=== PATIENT | female | born 2000 | race Asian ===

== ENCOUNTER 2023-02-09 14:25 | Emergency (ER) | payer BC, SELFPAY ==
[2023-02-09 14:38] VITALS: BP 127/82; PULSE 96; RESP 16; TEMP 37.1; O2SAT 100
--- NOTE | 2023-02-09 14:39 | ED.ABDPAIN ---
HPI - Abdominal Pain General Chief Complaint: Abdominal Pain Stated Complaint: VOMITING/ABD PAIN/CHEST PAIN Source: patient and RN notes reviewed Mode of arrival: ambulatory Limitations: no limitations History of Present Illness HPI narrative: 22-year-old female presented for complaint of abdominal cramping, nausea vomiting, and diarrhea. Onset this morning. Abdominal cramping is around the navel, and ranges from 2/10-10/10 pain. Reports about 4 episodes of vomiting, denies hematemesis. Has not eaten anything today. Last meal was pizza at 8pm last night. Denies anyone with similar symptoms. Has not taken anything for symptoms. Denies cough, sob, wheezing, urinary complaints, flank pain, or fever. LMP 10 days ago. Denies abdominal surgery. Related Data Home Medications Medication Instructions Recorded Confirmed No Home Medications 02/09/23 02/09/23 Allergies Allergy/AdvReac Type Severity Reaction Status Date / Time No Known Allergies Allergy Verified 02/09/23 14:34 Review of Systems Review of Systems: CONSTITUTIONAL: Denies body aches, fever, chills ENT: Denies rhinorrhea, congestion CARDIOVASCULAR: Denies chest pain, palpitations, or edema. RESPIRATORY: Denies cough or dyspnea. GASTROINTESTINAL: Endorses abdominal pain, nausea, vomiting, diarrhea. Denies hematochezia, melena, hematemesis GENITOURINARY: Denies dysuria, hematuria, or CVA tenderness. SKIN: Denies rash, itching, or wounds. MUSCULOSKELETAL: Denies back pain, joint pain, or myalgia. NEUROLOGIC: Denies headache, numbness, tingling, or weakness. All systems reviewed & are unremarkable except as noted in HPI and below [facility] Past Medical History Medical History (Updated 02/09/23 @ 15:06 by Bethany Basurto APRN) Anxiety Eczema Social History Social History Smoking status: Never smoker Alcohol intake: never Comments At time of signature, I have reviewed and agree with nursing past medical, surgical, social and family history unless otherwise noted. Please see nursing chart for further information. There is no relevant family history pertinent to the presenting complaint Exam Narrative: GENERAL: mildly ill-appearing EYES: EOMI. Conjunctivae normal. ENT: Mucous membranes pink and moist. CHEST: No respiratory distress. Clear to auscultation. HEART: Regular rate and rhythm. No murmur appreciated. Normal peripheral pulses. ABDOMEN: abd soft, nondistended, normal active bowel sounds. Generalized tender abdomen, worse to RLQ and periumbilical. Guarding and crying noted. Pain improved, stating it comes in waves. No rebound tenderness, asymmetry, or rigidity. No pulsatile masses. Negative Ruiz?s sign. No Supra public tenderness or distension. EXTREMITIES: Normal range of motion. SKIN: Warm, dry, no rash. Capillary refill normal. Normal skin turgor. NEURO: No focal deficits. Alert and oriented x3. PSYCH: Normal affect. Course Course Emergency Course: Patient is aware of diagnosis, understands and agrees to treatment plan. Anticipatory guidance given. Patient agrees to follow-up as directed and is aware of reasons to seek care at the emergency department. Portions of this record may have been created with voice recognition software Level of Care: Express Care Visit Vital Signs Vital signs: Vital Signs Temperature 98.7 F 02/09/23 14:38 Pulse Rate 96 02/09/23 14:38 Respiratory Rate 16 02/09/23 14:38 Blood Pressure 127/82 02/09/23 14:38 Pulse Oximetry 100 02/09/23 14:38 Temperature 98.7 F 02/09/23 14:38 Pulse Rate 96 02/09/23 14:38 Respiratory Rate 16 02/09/23 14:38 Blood Pressure 127/82 02/09/23 14:38 Pulse Oximetry 100 02/09/23 14:38 Transfer Transfered to: [employer] Transportation: Other (Private vehicle) Transfer rationale: Pt is agreeable to transfer. Requests transfer to [facility] via private vehicle. Risks
[2023-02-09] MEDS: ONDANSETRON HCL ODT 4 MG TABLET SUBLINGUAL (14:53)
== END 2023-02-09 14:56 | disposition short-term general hospital (02) ==
PROVIDERS: Emergency Provider Nurse Practitioner Family; PCP Internal Medicine
DX: R10.31 Right lower quadrant pain (principal); R10.33 Periumbilical pain
CPT/HCPCS: 99213; A9270; G0463

== ENCOUNTER 2023-02-09 15:15 | Emergency (ER) | payer BC, SELFPAY ==
--- NOTE | ~2023-02-09 | CT_ITS ---
EXAMINATION: CT abdomen pelvis w con INDICATION: Generalized abdominal pain TECHNIQUE: Computed tomographic images of the abdomen and pelvis were obtained after the administrati on of 100 cc of Omnipaque 350 intravenous contrast. The dose-length product (DLP) was 718.47 mGy-cm. Automated exposure control and iterative reconstruction technique were employed. COMPARISON: None available FINDINGS: Minimal dependent atelectasis is present in the lung bases. The heart size is normal. The l iver, spleen, pancreas, gallbladder, and adrenal glands are normal. The kidneys are unremarkable. No pathologically enlarged abdominal or pelvic lymph nodes are identified. No free intraperitoneal gas o r evidence of bowel obstruction. There is a small amount of fluid in the right adnexa, likely physiol ogic. The appendix is normal. There is circumferential wall thickening involving segments of the term inal ileum. IMPRESSION: 1. Circumferential wall thickening involving segments of the terminal ileum which could reflect ileit is or inflammatory bowel disease such as Crohn disease. Reviewed, dictated and finalized at location B. [employer]PH[employer]ER IMPRESSION: 1. Circumferential wall thickening involving segments of the terminal ileum whi ch could reflect ileitis or inflammatory bowel disease such as Crohn disease.
[2023-02-09 15:17] VITALS: BP 146/84; PULSE 100; RESP 19; TEMP 36.4; O2SAT 100
[2023-02-09 15:42] LABS: Basophils Percent Auto 0.2 % (0.2-1.2); Eosinophils Percent Auto 0.2 % (0-4.4); Hematocrit 47.8 % (37.0-47.0); Hemoglobin 15.6 g/dL (12.0-15.0); Immature Granulocyte Absolute 0.05 K/mm3 (0.00-0.031); Immature Granulocyte Percent A 0.4 % (0-0.5); Lymphocytes Absolute Auto 0.57 K/mm3 (0.9-3.2); Lymphocytes Percent Auto 4.9 % (18.3-44.2); Mean Corpuscular HGB Conc 32.6 g/dl (32-36); Mean Corpuscular Hemoglobin 28.6 pg (26-34); Mean Corpuscular Volume 87.7 fl (80-100); Mean Platelet Volume 9.4 fl (7.4-10.4); Monocytes Absolute Auto 0.4 K/mm3 (0.1-0.6); Monocytes Percent Auto 3.3 % (2.6-8.5); Neutrophils Absolute Auto 10.6 K/mm3 (1.3-6.7); Platelet Count Result 361 k/mm3 (150-375); Red Blood Count 5.45 M/mm3 (4.2-5.4); Red Cell Distribution Width 12.6 % (11.5-14.5); White Blood Count 11.7 K/mm3 (4.5-10.0)
[2023-02-09 15:51] LABS: Alanine Aminotransferase 81 U/L (6-35); Alkaline Phosphatase 83 U/L (38-126); Anion Gap 15 mmol/L (8-16); Aspartate Amino Transferase 45 U/L (14-36); Bilirubin,Total 0.9 mg/dL (0.2-1.3); Blood Urea Nitrogen 13 mg/dL (7-17); Calcium 10.1 mg/dL (8.4-10.2); Carbon Dioxide 24 mmol/L (22-30); Chloride 102 mmol/L (98-107); Estimated CRCL calculation 112 ml/min; Estimated Glomerular Filt Rate > 60; Glucose 109 mg/dL (65-110); Lipase 97 U/L (23-300); Potassium 3.7 mmol/L (3.4-5.0); Sodium 141 mmol/L (137-145)
[2023-02-09 16:05] LABS: Appearance Urine Cloudy (Clear); Bacteria Urine 1+ /hpf; Bilirubin Urine Negative (Negative); Blood Urine Negative (Negative); Color Urine Yellow (Yellow); Glucose Urine UA Negative (Negative); Ketones Urine 3+ mg/dL (Negative); Leukocyte Esterase Ur Trace LEU/UL (Negative); Need Manual Microscopic Reviewed; Nitrate Urine Negative (Negative); Non Pathogenic Casts 0-2; Protein Urine Trace mg/dL (Negative); Specific Grav Ur 1.031 (1.001-1.035); Squamous Epithelial Cell Urine Few /hpf (Few); pH Urine 7.5 (5.0-9.0)
[2023-02-09 16:10] LABS: Add Urine Microscopic? YES
--- NOTE | 2023-02-09 16:19 | ED.ABDPAIN ---
HPI - Abdominal Pain General Chief Complaint: Abdominal Pain <Shagufta Mendoza PA-C - Last Filed: 02/09/23 17:30> Stated Complaint: abd pain <Shagufta Mendoza PA-C - Last Filed: 02/09/23 17:30> Time Seen by Provider: 02/09/23 15:36 <Shagufta Mendoza PA-C - Last Filed: 02/09/23 17:30> History of Present Illness HPI narrative: 22-year-old female, LMP 1.5 weeks ago, reports for evaluation for generalized abdominal pain since 0700 this morning. Patient reports associated nausea, vomiting and watery diarrhea since she has developed symptoms. She denies aggravating or alleviating factors. She is never had pain like this before. She has not taken anything for pain. She denies dysuria, hematuria, urinary frequency or urgency, flank pain, fever, vaginal bleeding or discharge, concern for STDs, melena or hematochezia. Denies history of abdominal surgeries. <Shagufta Mendoza PA-C - Last Filed: 02/09/23 17:30> Related Data Allergies/Adverse Reactions: Allergies Allergy/AdvReac Type Severity Reaction Status Date / Time No Known Allergies Allergy Verified 02/09/23 14:34 <Shagufta Mendoza PA-C - Last Filed: 02/09/23 17:30> Review of Systems Review of Systems: CONSTITUTIONAL: Denies fever, chills EYES: Denies visual changes, redness, or discharge. ENT: Denies rhinorrhea, congestion, sore throat, or otalgia. CARDIOVASCULAR: Denies chest pain, palpitations, or edema. RESPIRATORY: Denies cough or dyspnea. GASTROINTESTINAL: See HPI GENITOURINARY: Denies dysuria or hematuria. SKIN: Denies rash or itching. MUSCULOSKELETAL: Denies back pain, joint pain, or myalgia. NEUROLOGIC: Denies headache, numbness, dizziness, or weakness. PSYCHIATRIC: Denies anxiety or depression. <Shagufta Mendoza PA-C - Last Filed: 02/09/23 17:30> PMFSH Past Medical History Medical History: Medical History Anxiety Eczema <Shagufta Mendoza PA-C - Last Filed: 02/09/23 17:30> Social History Social History: Social History Smoking status: Never smoker Alcohol intake: never <Shagufta Mendoza PA-C - Last Filed: 02/09/23 17:30> Exam Narrative: GENERAL: Well-appearing, in no acute distress. HEAD: Normocephalic EYES: PERRLA ENT: Nares clear. Mucous membranes moist. Oropharynx without tonsillar hypertrophy exudate or other lesions. NECK: Supple. CHEST: No respiratory distress. Clear to auscultation, no adventitious breath sounds. HEART: Regular rate and rhythm. No murmur heard. Normal peripheral pulses. ABDOMEN: Normal active bowel sounds. Abdomen soft with mild generalized tenderness. No guarding, rebound or rigidity. No CVA tenderness. No overlying skin changes. Negative Ruiz's. EXTREMITIES: Normal range of motion. No edema. SKIN: Warm, dry, no rash. NEURO: No focal deficits. Alert and oriented x3. PSYCH: Tearful <Shagufta Mendoza PA-C - Last Filed: 02/09/23 17:30> Course CENTER MANAGER/PA Physician Supervision I agree with midlevel documentation; I performed the medical decision making component of this evaluation. <Lolly Kirk MD - Last Filed: 02/09/23 18:22> Vital Signs Vital signs: Vital Signs Temperature 97.5 F L 02/09/23 15:17 Pulse Rate 100 02/09/23 15:17 Respiratory Rate 19 02/09/23 15:17 Blood Pressure 146/84 H 02/09/23 15:17 Pulse Oximetry 100 02/09/23 15:17 Oxygen Delivery Room Air 02/09/23 15:17 Temperature 97.5 F L 02/09/23 15:17 Pulse Rate 86 02/09/23 18:03 Respiratory Rate 14 02/09/23 18:03 Blood Pressure 128/79 02/09/23 18:03 Pulse Oximetry 100 02/09/23 18:03 Oxygen Delivery Room Air 02/09/23 15:17 <Shagufta Mendoza PA-C - Last Filed: 02/09/23 17:30> Vital Signs Temperature 97.5 F L 02/09/23 15:17 Pulse Rate 100 02/09/23 15:17 Respiratory Rate 19 02/09/23 15:17 Blood Pressure 14
[2023-02-09] MEDS: SODIUM CHLORIDE 0.9% IV 1,000 ML 999 ML IV CONT (16:29)
[2023-02-09] MEDS: ONDANSETRON INJ 4 MG/2 ML VIAL IV PUSH (16:30)
[2023-02-09] MEDS: MORPHINE SULFATE (*CRX) 4 MG/ML INJ IV PUSH (16:31)
[2023-02-09] MEDS: KETOROLAC 30 MG/ML VIAL (*BKC) IV PUSH (17:58)
[2023-02-09 18:03] VITALS: BP 128/79; PULSE 86; RESP 14; O2SAT 100
== END 2023-02-09 18:25 | disposition home or self-care (01) ==
PROVIDERS: Emergency Medicine; Emergency Provider Physician Assistant; PCP Internal Medicine
DX: K52.9 Noninfective gastroenteritis and colitis, unspecified (principal)
CPT/HCPCS: 36415; 74177; 80053; 81001; 81025; 83690; 85025; 87086; 87088; 96361; 96374; 96375; 99284; A9270; J1885; J2270; J2405; J7030; Q9967

== ENCOUNTER 2023-02-17 23:22 | Observation (INO) | payer BC, SELFPAY ==
--- NOTE | ~2023-02-17 | XR_ITS ---
EXAMINATION: XR UGIAC w small bowel DATE: 02/18/2023 11:59 INDICATION: Abdominal discomfort. TECHNIQUE: The patient drank thick barium, gas-producing crystals, and thin barium. Fluoroscopy of th e esophagus, stomach, and small bowel was performed. Fluoroscopy exposure time was 0.8 minutes. Radio graphs of the abdomen were obtained. The total number of images was 259. COMPARISON: CT abdomen and pelvis 02/09/2023 FINDINGS: UPPER GASTROINTESTINAL SERIES: There is no mass or stricture of the esophagus. Esophageal motility is normal. There is no hiatal her edis. The stomach shows a normal folding pattern. SMALL BOWEL SERIES: The small bowel shows a normal folding pattern. Specifically, the terminal ileum is normal. Transit t george to the colon was 15 minutes. IMPRESSION: 1. Normal upper gastrointestinal series. 2. Normal small bowel series. Reviewed, dictated and finalized at location A. ONHOLER
--- NOTE | ~2023-02-17 | US_ITS ---
EXAMINATION: US abdomen limited DATE: 02/18/2023 12:21 INDICATION: Nausea and vomiting. TECHNIQUE: Multiple grayscale and Doppler ultrasound images of the abdomen were obtained. COMPARISON: CT abdomen and pelvis 02/09/2023 FINDINGS: The visualized portions of the head and body of the pancreas are normal. The liver is orquidea l without focal lesion. There is normal flow in main portal vein. The gallbladder is normal in size a nd contains stones. No gallbladder wall thickening or sonographic Ruiz sign. The common duct is nor mal measures 3 mm. IMPRESSION: 1. Cholelithiasis. No evidence of acute cholecystitis. Reviewed, dictated and finalized at location A. CAL CHEMIST
[2023-02-17 23:39] VITALS: BP 150/100; PULSE 86; RESP 14; TEMP 36.8; O2SAT 100
[2023-02-18] VITALS (10 sets, daily range): BP systolic 109–149; BP diastolic 44–93; PULSE 58–90; RESP 16–17; TEMP 36.1–36.8; O2SAT 92–100; BMI 34.9
--- NOTE | 2023-02-18 01:38 | ED.NAVMDI ---
HPI - Nausea/Vomiting/Diarrhea General Chief complaint: Nausea/Vomiting/Diarrhea Stated complaint: N/V, abd pain Time Seen by Provider: 02/18/23 01:11 Source: patient Limitations: no limitations History of Present Illness HPI Narrative: Patient is a 22-year-old female presents to the emergency department accompanied by her mother for abdominal pain, nausea, vomiting. Patient states that she was here approximate 1.5 weeks ago for something similar when she was having nausea and vomiting and diarrhea and abdominal discomfort and had a CT scan done and was discharged with medications and has not followed up with anybody. Patient states at that time her abdominal discomfort within lower region was cramping and now it has changed over the past couple days it has been intermittent and in the epigastric and right upper quadrant region, described as an ache, nonradiating, denies any chest pain in the past, has an notice anything making her pain better or worse. Patient states that she went to [facility] on Sunday emergency department and again was evaluated for this without any diagnosis. Patient has never seen a sequins winder the patient has follow-up with the primary care physician on Sunday. Patient admits to emesis partially 1 episode daily and usually happens in the morning and is nonbloody and nonbilious. Patient denies any further diarrhea states rather she is more constipated now but has had a last bowel movement was today. Patient denies fever, use stool softeners, recent injuries, sick contacts, chest pain, shortness of breath, cough, history kidney stones, dysuria, urinary urgency, hematuria, melena, hematochezia. Patient is to chronic urinary frequency. Patient is to being able to tolerate some p.o. feels like she is not able to adequately nourished herself. Patient's her last menstrual period was 3 weeks ago. Patient has been taking famotidine, Zofran, dicyclomine without resolution of her symptoms. Related Data Allergies Allergy/AdvReac Type Severity Reaction Status Date / Time No Known Allergies Allergy Verified 02/18/23 01:09 Review of Systems Review of Systems: A 10 system review of systems was completed on the patient and is negative except for what is stated in the HPI. Nursing and ancillary documentation was reviewed. PMFSH Past Medical History Medical History Anxiety Eczema Social History Social History Smoking status: Never smoker Alcohol intake: never Comments At time of signature, I have reviewed and agree with nursing past medical, surgical, social and family history unless otherwise noted. Please see the nursing chart for further information. There is no relevant family history pertinent to the presenting complaint. Exam Narrative: CONST: No acute distress. Well nourished. HENMT: Head is normocephalic and atraumatic. Moist mucous membranes. No posterior oropharynx erythema. EYES: No conjunctival icterus, injection, or pallor. PERRL. NECK: No meningeal signs. RESP: Able to speak in full sentences. Normal respiratory effort. CTAB. CARDIO: Regular rate. Regular rhythm. 2+ DP and radial pulses bilaterally. GI: Nondistended. No tenderness to palpation. Soft. Negative Ruiz sign. No McBurney's point tenderness palpation. Negative psoas sign. Negative obturator's sign. No palpable masses or hernias. : No CVA tenderness to palpation. SKIN: No rashes or lesions noted on exposed skin. NEURO: Oriented x3. Moves all extremities. EXTREM/MSK/BACK: No pedal edema. PSYCH: Normal affect. Course Vital Signs Vital signs: Vital Signs Temperature 98.2 F 02/17/23 23:39 Pulse Rate 86 02/17/23 23:39 Respiratory Rate 14 02/17/23 23:39 Blood Pressure 150/100 H 02/17/23 23:39 Pulse Oximetry 100 02/17/23 23:39 Oxygen Delivery Room Air 02/17/23 23:39 Tem
[2023-02-18] MEDS: ACETAMINOPHEN 500 MG TABLET 1000 MG PO (01:51)
[2023-02-18] MEDS: METOCLOPRAMIDE HCL INJ 10 MG/2 ML VIAL IV PUSH (01:55)
[2023-02-18] MEDS: FAMOTIDINE 20 MG/2 ML VIAL IV PUSH (01:55)
[2023-02-18] MEDS: SODIUM CHLORIDE 0.9% IV 1,000 ML 999 ML IV CONT (01:56)
[2023-02-18 02:05] LABS: Basophils Absolute Auto 0.1 K/mm3 (0.0-0.1); Basophils Percent Auto 0.6 % (0.2-1.2); Eosinophils Absolute Auto 0.1 K/mm3 (0-0.3); Eosinophils Percent Auto 0.5 % (0-4.4); Hematocrit 46.5 % (37.0-47.0); Hemoglobin 15.2 g/dL (12.0-15.0); Immature Granulocyte Absolute 0.03 K/mm3 (0.00-0.031); Immature Granulocyte Percent A 0.3 % (0-0.5); Lymphocytes Absolute Auto 1.89 K/mm3 (0.9-3.2); Lymphocytes Percent Auto 16.7 % (18.3-44.2); Mean Corpuscular HGB Conc 32.7 g/dl (32-36); Mean Corpuscular Hemoglobin 28.5 pg (26-34); Mean Corpuscular Volume 87.2 fl (80-100); Monocytes Absolute Auto 0.7 K/mm3 (0.1-0.6); Monocytes Percent Auto 6.2 % (2.6-8.5); Neutrophils Absolute Auto 8.5 K/mm3 (1.3-6.7); Neutrophils Percent Auto 75.7 % (45.5-73.1); Platelet Count Result 393 k/mm3 (150-375); Red Blood Count 5.33 M/mm3 (4.2-5.4); Red Cell Distribution Width 12.7 % (11.5-14.5); White Blood Count 11.3 K/mm3 (4.5-10.0)
[2023-02-18 02:10] LABS: Appearance Urine Cloudy (Clear); Bacteria Urine 1+ /hpf; Bilirubin Urine Negative (Negative); Blood Urine Negative (Negative); Color Urine Yellow (Yellow); Glucose Urine UA Negative (Negative); Ketones Urine 4+ mg/dL (Negative); Leukocyte Esterase Ur Negative LEU/UL (Negative); Nitrate Urine Negative (Negative); Non Pathogenic Casts 0-2; Protein Urine Trace mg/dL (Negative); RBC Urine 0-2 /hpf (0-2); Specific Grav Ur 1.024 (1.001-1.035); Squamous Epithelial Cell Urine Few /hpf (Few); Urobilinogen Urine 0.2 mg/dL (<2.0); WBC Urine 0-5 /hpf; pH Urine 5.5 (5.0-9.0)
[2023-02-18 02:22] LABS: Lactic Acid Reflex 1.1 mmol/L (0.7-2.0)
[2023-02-18 02:24] LABS: Add Urine Microscopic? YES
[2023-02-18 02:32] LABS: Alanine Aminotransferase 57 U/L (6-35); Albumin Level 5.2 g/dL (3.5-5.1); Alkaline Phosphatase 75 U/L (38-126); Anion Gap 18 mmol/L (8-16); Aspartate Amino Transferase 45 U/L (14-36); Bilirubin,Total 1.2 mg/dL (0.2-1.3); Blood Urea Nitrogen 8 mg/dL (7-17); CRP < 0.5 mg/dL (<1.0); Calcium 10.5 mg/dL (8.4-10.2); Carbon Dioxide 21 mmol/L (22-30); Chloride 101 mmol/L (98-107); Estimated CRCL calculation 98 ml/min; Estimated Glomerular Filt Rate > 60; Glucose 61 mg/dL (65-110); Lipase 77 U/L (23-300); Magnesium 2.1 mg/dL (1.6-2.3); Potassium 3.9 mmol/L (3.4-5.0); Sodium 140 mmol/L (137-145)
[2023-02-18 02:41] LABS: Influenza A QL RT-PCR Negative (Negative); Influenza B QL RT-PCR Negative (Negative); SARS-CoV-2 RNA PCR Negative (Negative)
[2023-02-18] MEDS: DEXTROSE 5%/0.9% SOD CHL 1,000 ML 999 ML IV CONT (03:15)
--- NOTE | 2023-02-18 04:09 | ADMGEN ---
This patient, Paris Reaves, was admitted to Medical Room 261-01. Patient/family oriented to hospital policies and general routines including ID bracelet, bed and alarms, visiting hours, pain management, procedures, bathroom and other care routines, personal items, smoking policy, room service/diet, and visiting hours. Information on how to activate the Rapid Response Team has been discussed. Patient/Family are encouraged to report perceived risks to care and to ask questions if they do not understand what they are told or what they should do.
[2023-02-18] MEDS: SODIUM CHLORIDE 0.9% IV 1,000 ML 125 ML IV CONT (04:26)
--- NOTE | 2023-02-18 04:40 | PM.IMHP ---
H&P: HPI History of Present Illness Date/Time: 02/18/23 04:40 Chief Complaint: Abdominal pain Narrative: This is a 22-year-old female with known significant past medical history patient presents to the emergency room due to nausea vomiting poor oral intake poor appetite diarrhea, soft stools, denies, fevers, rigors or chills no hematemesis no coffee-ground emesis no bright red blood per rectum no melena no weight loss, no generalized malaise. Patient had been seen in the emergency room on February [address] of abdomen and pelvis showed local ileitis patient was sent home famotidine, Zofran, dicyclomine, naproxen. However patient states that she has not been able to get back to her usual and comes for evaluation. EXAMINATION: CT abdomen pelvis w con INDICATION: Generalized abdominal pain TECHNIQUE: Computed tomographic images of the abdomen and pelvis were obtained after the administration of 100 cc of Omnipaque 350 intravenous contrast. The dose-length product (DLP) was 718.47 mGy-cm. Automated exposure control and iterative reconstruction technique were employed. COMPARISON: None available FINDINGS: Minimal dependent atelectasis is present in the lung bases. The heart size is normal. The liver, spleen, pancreas, gallbladder, and adrenal glands are normal. The kidneys are unremarkable. No pathologically enlarged abdominal or pelvic lymph nodes are identified. No free intraperitoneal gas or evidence of bowel obstruction. There is a small amount of fluid in the right adnexa, likely physiologic. The appendix is normal. There is circumferential wall thickening involving segments of the terminal ileum. IMPRESSION: 1. Circumferential wall thickening involving segments of the terminal ileum which could reflect ileitis or inflammatory bowel disease such as Crohn disease. Review of Systems Review of Systems: Nausea, vomiting, poor per orally intake, diarrhea, soft stools. Constitutional: Constitutional: Denies chills, Denies fatigue, Denies fever(s), Denies malaise, Denies night sweats, Reports poor appetite and Reports weakness Eyes: Eyes: Denies change in vision ENT: Denies dysphagia, Denies vertigo, Denies dizziness and Denies odynophagia Cardiovascular: Cardiovascular: Denies chest pain, Denies radiating jaw, neck or arm pain and Denies palpitations Respiratory: Respiratory: Denies chest congestion and Denies dyspnea Gastrointestinal: Gastrointestinal: Reports abdominal pain, Denies melena, Denies hematochezia, Denies dyspepsia, Denies heartburn, Reports diarrhea, Reports nausea and Reports vomiting Genitourinary: Genitourinary: Denies dysuria Musculoskeletal: Musculoskeletal: Denies muscle weakness Integumentary/Breasts: Skin/Breast: Denies rash Neurologic: Denies focal weakness and Denies Sensory deficit (Neuro) Psychiatric: Psychiatric: Reports no additional psychiatric complaints and Reports as per HPI Endocrine: Endocrine: Denies cold intolerance, Denies fatigue, Denies flushing, Denies heat intolerance, Denies polyphagia, Denies polydipsia, Denies polyuria and Denies palpitations Hematologic/Lymphatic: Hematologic/Lymphatic: Reports no additional hematologic/lymphatic complaints and Reports as per HPI Allergic/Immunologic: Allergic/Immunologic: Reports no additional allergic/immunologic complaints and Reports as per HPI PMFSH Past Medical History Medical History Anxiety Eczema Family History Family History (Updated 02/18/23 @ 04:40 by Marlene Varma RN) Other Unknown family medical history Social History Social History Smoking status: Never smoker Alcohol intake: current Drinks per week: 3 Substance use: never Lack of Transportation: No Lack of Food: Never True Current Housing: I Have Housing Concerned About Future Housing: No Difficulty Paying Gas/[place]
[2023-02-18 05:49] LABS: Glucose Point of Care 178 mg/dl (65-105)
[2023-02-18] MEDS: DEXTROSE 5%/0.45% SOD CHL 1,000 ML 100 ML IV CONT ×2 (05:54→17:32)
--- NOTE | 2023-02-18 09:01 | PM.IMPN ---
Progress Note: A&P Assessment and Plan (1) Starvation ketoacidosis: Code(s): T73.0XXA - Starvation, initial encounter; E87.29 - Other acidosis Status: Acute (2) Transaminitis: Code(s): R74.01 - Elevation of levels of liver transaminase levels Status: Acute (3) Abdominal pain: Code(s): R10.9 - Unspecified abdominal pain Status: Acute (4) Nausea and vomiting: Code(s): R11.2 - Nausea with vomiting, unspecified Status: Acute Plan 22-year-old female presented with nausea vomiting poor p.o. intake abdominal pain poor appetite diarrhea. no reported bloody bowel movements. CT abdomen pelvis showed local Ileitis done on February 09. Involving terminal ileum. No GI follow-up has been done. Laboratory evaluation showed mild leukocytosis of 11,000. Heme concentration is hemoglobin of 15 thrombocytosis. Rapid COVID influenza PCR negative. Mild transaminitis. CRP is normal lipase is normal. Recurrent ED visits since earlier this month. will consult GI for further workup. History of fatty liver. Colonoscopy 3 years ago with hemorrhoids status post banding. Continue IV fluids and PPI will get ultrasound gallbladder to evaluate for gallstone disease. Subjective Date/time seen: 02/18/23 09:01 Interval history: 22-year-old female presented with nausea vomiting poor p.o. intake poor appetite diarrhea. CT abdomen pelvis showed local eye lightest done on February 09. Involving terminal ileum. No GI follow-up has been done. Laboratory evaluation showed mild leukocytosis of 11,000. Heme concentration is hemoglobin of 15 thrombocytosis. Rapid COVID influenza PCR negative. Mild transaminitis. CRP is normal lipase is normal Review of Systems Review of Systems: All systems reviewed & are unremarkable except as noted in HPI and below Exam Narrative: CONST: No acute distress. Well nourished. HENMT: Head is normocephalic and atraumatic. Moist mucous membranes. No posterior oropharynx erythema. EYES: No conjunctival icterus, injection, or pallor. PERRL. NECK: No meningeal signs. RESP: Able to speak in full sentences. Normal respiratory effort. CTAB. CARDIO: Regular rate. Regular rhythm. 2+ DP and radial pulses bilaterally. GI: Nondistended. No tenderness to palpation. Soft.? Negative Ruiz sign.? No McBurney's point tenderness palpation.? Negative psoas sign.? Negative obturator's sign.? No palpable masses or hernias. : No CVA tenderness to palpation. SKIN: No rashes or lesions noted on exposed skin. NEURO: Oriented x3. Moves all extremities. EXTREM/MSK/BACK: No pedal edema. PSYCH: Normal affect Objective Data Vital Signs Vital Signs: Vital Signs - 24 hr 02/17/23 23:39 02/18/23 01:09 02/18/23 00:36 Temperature 98.2 F Pulse Rate 86 65 Respiratory Rate 14 Blood Pressure 150/100 H 146/86 H 137/93 H Pulse Oximetry 100 100 Oxygen Delivery Room Air 02/18/23 00:46 02/18/23 01:01 02/18/23 03:18 Temperature Pulse Rate 61 Respiratory Rate Blood Pressure 141/87 H 146/86 H 135/77 Pulse Oximetry Oxygen Delivery 02/18/23 03:31 02/18/23 04:29 Temperature 97.4 F L Pulse Rate 63 58 L Respiratory Rate 16 Blood Pressure 149/78 H 119/75 Pulse Oximetry 100 100 Oxygen Delivery Intake/Output Intake/Output: Intake & Output 02/15/23 02/16/23 02/17/23 02/18/23 23:59 23:59 23:59 23:59 Intake Total 1000 Balance 1000 Meds/Results Medications: Active Medications Generic Name Dose Route Start Last Admin Trade Name Freq PRN Reason Stop Dose Admin Dicyclomine HCl 20 mg 02/18/23 09:00 Dicyclomine Hcl 10 Mg Capsule PO BID LYSSA Dextrose/Sodium Chloride 1,000 mls @ 100 mls/hr 02/18/23 05:25 02/18/23 05:54 Dextrose 5% Sodium Chloride 0.45% IV CONT 100 mls/hr .Q10H LYSSA Administration Pantoprazole Sodium 40 mg 02/18/23 09:00 Pantoprazole Sodium Iv 40 Mg Vial IV PUSH Q12HR LYSSA Labs Labs:
--- NOTE | 2023-02-18 10:21 | WPDGICN ---
Assessment and Plan Assessment and plan (1) Abnormal CT scan: Code(s): R93.89 - Abnormal findings on diagnostic imaging of other specified body structures Status: Acute Assessment and Plan: CT scan performed 10 days ago reveals possible thickening of the ileum. Differential diagnosis includes inflammatory bowel disease are possible to a spastic colon or enteritis. Plan for small-bowel follow-through to evaluate more thoroughly. Agree with Bentyl or Levsin antispasmodic agent trial. Further recommendations will be given after CT scan accomplished. A stool for fecal calprotectin to see of any inflammation will be processed. CRP is noted to be normal suggesting no inflammation. (2) Transaminitis: Code(s): R74.01 - Elevation of levels of liver transaminase levels Status: Acute Assessment and Plan: mild elevation of serum transaminases may be related to poor oral intake. We will follow these. Obtain hepatitis serologies. (3) Starvation ketoacidosis: Code(s): T73.0XXA - Starvation, initial encounter; E87.29 - Other acidosis Status: Acute Assessment and Plan: Ketosis noted urinalysis may be from not eating for a week. (4) Abdominal pain: Code(s): R10.9 - Unspecified abdominal pain Status: Acute Assessment and Plan: Abdominal pain by history appears nonspecific. Potentially correlates with finding on CT scan imaging. Agree with Bentyl for possible spastic colon initially. GI Consult Note Consult date/time: 02/18/23 10:21 Reason for consult: Abdominal pain, abnormal CT scan. HPI: Paris Reaves is a 22 year old female I am asked to see because of abnormal CT scan. Patient reports that she was in her usual state of health until Sunday02/09/2022. She developed rather severe abdominal cramping. For this reason she went to [facility] Emergency Room. A CT scan suggested circumferential ileal narrowing. Patient was treated with for possible gastroenteritis . She was given Zofran and Naprosyn. This failed to alleviate her pain in several days later she went to [facility] Emergency Room. Medications were changed but these medications are not available for review. Patient continued to have abdominal pain and return to our hospital last evening. She subsequently was admitted for further evaluation and therapy. Patient denies any family history inflammatory bowel disease. She denies any prior episodes abdominal pain. No one else in the family is ill. She has had no recent travel. No other medications prior to this. She denies any other major surgeries. She was seen in arm urgency room 2019 with an overdose of medications. Patient has not seen her primary care doctor recently. No other workup for this abnormal x-ray is encountered. Patient has not been eating much this last week. She has for full this contributes to her pain. Patient is adopted has no known past family history. Review of Systems Review of Systems: Review of systems noncontributory. [facility] Past Medical History Medical History Anxiety Eczema Family History Family History (Updated 02/18/23 @ 04:40 by Marlene Varma RN) Other Unknown family medical history Social History Social History Smoking status: Never smoker Alcohol intake: current Drinks per week: 3 Substance use: never Lack of Transportation: No Lack of Food: Never True Current Housing: I Have Housing Concerned About Future Housing: No Difficulty Paying Gas/Electric Bills: No Difficulty Paying for Meds: No Currently Unemployed: No Education: High School Diploma/GED Difficulty w/ Childcare or Family Care: No Spiritual care concerns: No Meds Home Medications and Allergies Home Medications Medication Instructions Recorded
[2023-02-18] MEDS: PANTOPRAZOLE SODIUM IV 40 MG VIAL IV PUSH ×2 (10:37→20:40)
[2023-02-18] MEDS: DICYCLOMINE HCL 10 MG CAPSULE 20 MG PO ×2 (10:55→17:32)
[2023-02-18 12:22] LABS: Hepatitis B Surface Antigen Negative (Negative)
[2023-02-18 12:28] LABS: HAV RESULT Negative (Negative); Hepatitis B Core IgM Result Negative (Negative)
[2023-02-18 12:40] LABS: Hepatitis C Virus Antibody Negative (Negative)
[2023-02-18] MEDS: ACETAMINOPHEN 325 MG TABLET 650 MG PO (17:32)
[2023-02-19] MEDS: DEXTROSE 5%/0.45% SOD CHL 1,000 ML 100 ML IV CONT ×3 (03:37→21:17)
[2023-02-19 05:35] VITALS: BP 131/55; PULSE 64; RESP 17; TEMP 37; O2SAT 100
[2023-02-19 05:53] LABS: Basophils Absolute Auto 0.1 K/mm3 (0.0-0.1); Eosinophils Absolute Auto 0.2 K/mm3 (0-0.3); Eosinophils Percent Auto 2.8 % (0-4.4); Hematocrit 41.2 % (37.0-47.0); Hemoglobin 13.5 g/dL (12.0-15.0); Immature Granulocyte Absolute 0.03 K/mm3 (0.00-0.031); Immature Granulocyte Percent A 0.4 % (0-0.5); Mean Corpuscular HGB Conc 32.8 g/dl (32-36); Mean Corpuscular Hemoglobin 28.5 pg (26-34); Mean Corpuscular Volume 87.1 fl (80-100); Mean Platelet Volume 9.9 fl (7.4-10.4); Monocytes Absolute Auto 0.6 K/mm3 (0.1-0.6); Monocytes Percent Auto 8.7 % (2.6-8.5); Neutrophils Absolute Auto 3.7 K/mm3 (1.3-6.7); Neutrophils Percent Auto 51.1 % (45.5-73.1); Platelet Count Result 352 k/mm3 (150-375); Red Blood Count 4.73 M/mm3 (4.2-5.4); Red Cell Distribution Width 12.4 % (11.5-14.5); White Blood Count 7.2 K/mm3 (4.5-10.0)
[2023-02-19 06:10] LABS: Alanine Aminotransferase 36 U/L (6-35); Alkaline Phosphatase 59 U/L (38-126); Anion Gap 12 mmol/L (8-16); Aspartate Amino Transferase 24 U/L (14-36); Bilirubin,Total 0.6 mg/dL (0.2-1.3); Calcium 9.5 mg/dL (8.4-10.2); Carbon Dioxide 22 mmol/L (22-30); Chloride 104 mmol/L (98-107); Estimated CRCL calculation 128 ml/min; Estimated Glomerular Filt Rate > 60; Glucose 94 mg/dL (65-110); Magnesium 1.9 mg/dL (1.6-2.3); Potassium 3.2 mmol/L (3.4-5.0); Sodium 138 mmol/L (137-145)
[2023-02-19 06:13] LABS: Blood Urea Nitrogen < 2 mg/dL (7-17)
--- NOTE | 2023-02-19 07:03 | WPDGIPROGNO ---
Progress Note: A&P Assessment and Plan (1) Abnormal CT scan: Code(s): R93.89 - Abnormal findings on diagnostic imaging of other specified body structures Status: Acute Assessment and Plan: CT scan performed 10 days ago suggested small-bowel follow-through is unremarkable. CRP normal suggesting no inflammation. I suspect she has irritable bowel. Plan to continue Bentyl. See advance to regular diet. Discharge okay from GI perspective (2) Gallstones: Code(s): K80.20 - Calculus of gallbladder without cholecystitis without obstruction Status: Acute Assessment and Plan: gallstones identified on imaging studies. If abdominal pain persists consider HIDA scan in surgery consult. (3) Transaminitis: Code(s): R74.01 - Elevation of levels of liver transaminase levels Status: Acute Assessment and Plan: Transaminases are resolving. Perhaps related to gallbladder disease, or dehydration on admission. (4) Abdominal pain: Code(s): R10.9 - Unspecified abdominal pain Status: Acute Assessment and Plan: abdominal pain resolved. I suspect irritable bowel syndrome. Discharge okay now the pain is resolved. Regular diet advised. Continue Bentyl. Subjective Date/time seen: 02/19/23 07:03 Interval history: This morning. She states that her abdominal pain has resolved. Review of Systems Review of Systems: Review of systems Noncontributory. Exam Narrative: physical exam reveals patient be alert. Vital signs stable. HEENT exam is unremarkable. Patient is anicteric. Lungs are clear to auscultation and to percussion. Is without murmur or extra sounds. Abdomen bowel sounds are present soft nontender with no organomegaly. Objective Data Vital Signs Vital Signs: Vital Signs - 24 hr 02/18/23 10:45 02/18/23 14:38 02/18/23 20:00 Temperature 96.9 F L Pulse Rate 90 90 Respiratory Rate 16 16 Blood Pressure 109/44 L Pulse Oximetry 92 92 Oxygen Delivery Room Air Room Air 02/18/23 20:46 02/19/23 05:35 Temperature 98.2 F 98.6 F Pulse Rate 62 64 Respiratory Rate 17 17 Blood Pressure 132/69 131/55 L Pulse Oximetry 100 100 Oxygen Delivery Intake/Output Intake/Output: Intake & Output 02/16/23 02/17/23 02/18/23 02/19/23 23:59 23:59 23:59 23:59 Intake Total 2120 1350 Balance 2120 1350 Meds/Results Medications: Active Medications Generic Name Dose Route Start Last Admin Trade Name Troy PRN Reason Stop Dose Admin Acetaminophen 650 mg 02/18/23 16:50 02/18/23 17:32 Acetaminophen 325 Mg Tablet PO 650 mg Q6H PRN Administration Mild Pain (1-3) or Fever Dicyclomine HCl 20 mg 02/18/23 09:00 02/18/23 17:32 Dicyclomine Hcl 10 Mg Capsule PO 20 mg BID LYSSA Administration Dextrose/Sodium Chloride 1,000 mls @ 100 mls/hr 02/18/23 05:25 02/19/23 03:37 Dextrose 5% Sodium Chloride 0.45% IV CONT 100 mls/hr .Q10H LYSSA Administration Pantoprazole Sodium 40 mg 02/18/23 09:00 02/18/23 20:40 Pantoprazole Sodium Iv 40 Mg Vial IV PUSH 40 mg Q12HR LYSSA Administration Radiology Results: ITS Impressions Upper GI and Small Bowel X-Ray 02/18/23 12:05 IMPRESSION: 1. Normal upper gastrointestinal series. 2. Normal small bowel series. Abdomen Ultrasound 02/18/23 12:27 IMPRESSION: 1. Cholelithiasis. No evidence of acute cholecystitis. Labs Labs: Laboratory Results - last 24 hr 02/18/23 02/19/23 01:52 05:14 WBC 7.2 RBC 4.73 Hgb 13.5 Hct 41.2 MCV 87.1 MCH 28.5 MCHC 32.8 RDW 12.4 Plt Count 352 MPV 9.9 Immature Gran % (Auto) 0.4 Neut % (Auto) 51.1 Lymph % (Auto) 36.0 [place] % (Auto) 8.7 H Eos % (Auto) 2.8 Baso % (Auto) 1.0 Lymph # (Auto) 2.60 [place] # (Auto) 0.6 Eos # (Auto) 0.2 Baso # (Auto) 0.1 Abs Immat Gran (auto) 0.03 Absolute Neuts (auto) 3.7 Absolute Nucleated RBC 0.0 Nucleated RBC % 0.0
[2023-02-19] MEDS: PANTOPRAZOLE SODIUM IV 40 MG VIAL IV PUSH ×2 (09:02→21:16)
[2023-02-19 09:03] VITALS: RESP 18; O2SAT 100
[2023-02-19] MEDS: DICYCLOMINE HCL 10 MG CAPSULE 20 MG PO ×2 (09:03→16:19)
[2023-02-19 11:08] VITALS: BMI 34.9
[2023-02-19 12:43] VITALS: O2SAT 99
--- NOTE | 2023-02-19 13:25 | PM.CNGS ---
Assessment and Plan Assessment and plan (1) Abdominal pain: Code(s): R10.9 - Unspecified abdominal pain Status: Acute Assessment and Plan: symptoms seem to be biliary in nature, given findings of cholelithiasis on imaging I believe it to be reasonable to proceed c urgent cholecystectomy (2) Gallstones: Code(s): K80.20 - Calculus of gallbladder without cholecystitis without obstruction Status: Acute Assessment and Plan: see above, long d/w pt and decision to proceed c cholecystectomy (3) Transaminitis: Code(s): R74.01 - Elevation of levels of liver transaminase levels Status: Acute Assessment and Plan: resolved, likely from dehydration, N/V, diarrhea History of Present Illness Consult details Consult date: 02/19/23 Reason for consult: gallstones Requesting physician: Sushant Ames MD Narrative: Pt is a 22 y/o F presenting to the hospital c/o upper abd pain, N/V, diarrhea over last 10 days or so. Pt reports she has been unable to eat or drink much. Pt reports eating seems to worsen sx. Pt reports pain is constant in epigastrium/RUQ. Pt had been seen in ED 3 x over this time span. Pt denies previous similar sx. Pt does not know her FH. Review of Systems Review of Systems: All systems reviewed & are unremarkable except as noted in HPI and below PMFSH Past Medical History Medical History Anxiety Eczema Family History Family History Other Unknown family medical history Social History Social History Smoking status: Never smoker Alcohol intake: current Drinks per week: 3 Substance use: never Lack of Transportation: No Lack of Food: Never True Current Housing: I Have Housing Concerned About Future Housing: No Difficulty Paying Gas/Electric Bills: No Difficulty Paying for Meds: No Currently Unemployed: No Education: High School Diploma/GED Difficulty w/ Childcare or Family Care: No Spiritual care concerns: No Comments SH - no abd surgery Meds Home Medications and Allergies Home Medications Medication Instructions Recorded Confirmed Type naproxen 500 mg tablet 500 mg PO BID PRN pain #20 tabs 02/09/23 02/18/23 Rx ondansetron 4 mg disintegrating 4 mg PO Q8H #20 tabs 02/09/23 02/18/23 Rx tablet dicyclomine 20 mg tablet 20 mg PO BID 02/18/23 02/18/23 History famotidine 20 mg tablet 20 mg PO BID 02/18/23 02/18/23 History Allergies Allergy/AdvReac Type Severity Reaction Status Date / Time No Known Allergies Allergy Verified 02/18/23 01:09 Vital Signs Vital Signs - 24 hr 02/18/23 14:38 02/18/23 20:00 02/18/23 20:46 Temperature 36.1 C L 36.8 C Pulse Rate 90 90 62 Respiratory Rate 16 16 17 Blood Pressure 109/44 L 132/69 Pulse Oximetry 92 92 100 Oxygen Delivery Room Air 02/19/23 05:35 02/19/23 09:03 02/19/23 12:43 Temperature 37.0 C Pulse Rate 64 Respiratory Rate 17 18 Blood Pressure 131/55 L Pulse Oximetry 100 100 99 Oxygen Delivery Room Air Room Air Exam Const: General: cooperative, acute distress mild, uncomfortable and obese HENMT: Head: normal to inspection, normocephalic and atraumatic Eyes: General: appearance normal, both eyes and all related structures Neck: Neck: normal visual inspection, full ROM and no lymphadenopathy Resp: Auscultation: clear to auscultation bilaterally Cardio: Rate: regular rate Rhythm: regular rhythm GI: Inspection: normal to inspection, distended and obesity GI Palp: Yes abdominal tenderness, Yes Soft to palpation, Yes Tenderness to palpation present (GI), No Guarding due to palpation present (GI) and No Rigid due to palpation Skin: General skin exam: normal color and no rashes or lesions noted Neuro: General: patient oriented x3 and CN's II-XI intact bilaterally Extrem: Gen
[2023-02-19 14:00] VITALS: BP 144/95; PULSE 65; RESP 17; TEMP 36.6; O2SAT 99
--- NOTE | 2023-02-19 16:35 | PM.IMPN ---
Progress Note: A&P Assessment and Plan (1) Starvation ketoacidosis: Code(s): T73.0XXA - Starvation, initial encounter; E87.29 - Other acidosis Status: Acute (2) Transaminitis: Code(s): R74.01 - Elevation of levels of liver transaminase levels Status: Acute (3) Abdominal pain: Code(s): R10.9 - Unspecified abdominal pain Status: Acute (4) Nausea and vomiting: Code(s): R11.2 - Nausea with vomiting, unspecified Status: Acute Plan 22-year-old female presented with nausea vomiting poor p.o. intake abdominal pain poor appetite diarrhea. no reported bloody bowel movements. CT abdomen pelvis showed local Ileitis done on February 09. Involving terminal ileum. No GI follow-up has been done. Laboratory evaluation showed mild leukocytosis of 11,000. Heme concentration is hemoglobin of 15 thrombocytosis. Rapid COVID influenza PCR negative. Mild transaminitis. CRP is normal lipase is normal. Recurrent ED visits since earlier this month. will consult GI for further workup. History of fatty liver. Colonoscopy 3 years ago with hemorrhoids status post banding. Continue IV fluids and PPI gallbladder revealed cholelithiasis without cholecystitis. Intermittent pain persist. GI consultation reviewed. Continue PPI. Consult General surgery Subjective Date/time seen: 02/19/23 16:35 Interval history: 22-year-old female presented with nausea vomiting poor p.o. intake poor appetite diarrhea. CT abdomen pelvis showed local eye lightest done on February 09. Involving terminal ileum. No GI follow-up has been done. Laboratory evaluation showed mild leukocytosis of 11,000. Heme concentration is hemoglobin of 15 thrombocytosis. Rapid COVID influenza PCR negative. Mild transaminitis. CRP is normal lipase is normal 02/19/2023: Is to have abdominal pain more in her right upper also having loose stool. Remains afebrile. Vomiting present this morning after her breakfast. Review of Systems Review of Systems: All systems reviewed & are unremarkable except as noted in HPI and below Exam Narrative: CONST: No acute distress. Well nourished. HENMT: Head is normocephalic and atraumatic. Moist mucous membranes. No posterior oropharynx erythema. EYES: No conjunctival icterus, injection, or pallor. PERRL. NECK: No meningeal signs. RESP: Able to speak in full sentences. Normal respiratory effort. CTAB. CARDIO: Regular rate. Regular rhythm. 2+ DP and radial pulses bilaterally. GI: Nondistended. Right upper quadrant tenderness epigastric tenderness soft. : No CVA tenderness to palpation. SKIN: No rashes or lesions noted on exposed skin. NEURO: Oriented x3. Moves all extremities. EXTREM/MSK/BACK: No pedal edema. PSYCH: Normal affect Objective Data Vital Signs Vital Signs: Vital Signs - 24 hr 02/18/23 20:00 02/18/23 20:46 02/19/23 05:35 Temperature 98.2 F 98.6 F Pulse Rate 90 62 64 Respiratory Rate 16 17 17 Blood Pressure 132/69 131/55 L Pulse Oximetry 92 100 100 Oxygen Delivery Room Air 02/19/23 09:03 02/19/23 12:43 Temperature Pulse Rate Respiratory Rate 18 Blood Pressure Pulse Oximetry 100 99 Oxygen Delivery Room Air Room Air Intake/Output Intake/Output: Intake & Output 02/16/23 02/17/23 02/18/23 02/19/23 23:59 23:59 23:59 23:59 Intake Total 2120 2480 Balance 2120 2480 Meds/Results Medications: Active Medications Generic Name Dose Route Start Last Admin Trade Name Freq PRN Reason Stop Dose Admin Acetaminophen 650 mg 02/18/23 16:50 02/18/23 17:32 Acetaminophen 325 Mg Tablet PO 650 mg Q6H PRN Administration Mild Pain (1-3) or Fever Dicyclomine HCl 20 mg 02/18/23 09:00 02/19/23 16:19 Dicyclomine Hcl 10 Mg Capsule PO 20 mg BID LYSSA Administration Dextrose/Sodium Chloride 1,000 mls @ 100 mls/hr 02/18/23 05:25 02/19/23 13:14 Dextrose 5% Sodium Chloride 0.45% IV CONT 100 mls/hr .Q10H LYSSA Administ
[2023-02-19 20:24] VITALS: BP 135/72; PULSE 80; RESP 17; TEMP 36.3; O2SAT 100
[2023-02-20] VITALS (13 sets, daily range): BP systolic 105–159; BP diastolic 72–95; PULSE 63–94; RESP 14–18; TEMP 36.6–37.2; O2SAT 96–100
[2023-02-20 05:46] LABS: Basophils Absolute Auto 0.1 K/mm3 (0.0-0.1); Basophils Percent Auto 0.9 % (0.2-1.2); Eosinophils Absolute Auto 0.2 K/mm3 (0-0.3); Hematocrit 41.7 % (37.0-47.0); Hemoglobin 13.9 g/dL (12.0-15.0); Immature Granulocyte Absolute 0.01 K/mm3 (0.00-0.031); Immature Granulocyte Percent A 0.1 % (0-0.5); Lymphocytes Absolute Auto 2.81 K/mm3 (0.9-3.2); Lymphocytes Percent Auto 35.1 % (18.3-44.2); Mean Corpuscular HGB Conc 33.3 g/dl (32-36); Mean Corpuscular Hemoglobin 29.1 pg (26-34); Mean Corpuscular Volume 87.2 fl (80-100); Monocytes Absolute Auto 0.6 K/mm3 (0.1-0.6); Monocytes Percent Auto 7.9 % (2.6-8.5); Neutrophils Absolute Auto 4.2 K/mm3 (1.3-6.7); Platelet Count Result 350 k/mm3 (150-375); Red Blood Count 4.78 M/mm3 (4.2-5.4); Red Cell Distribution Width 12.5 % (11.5-14.5)
[2023-02-20 06:00] LABS: Alanine Aminotransferase 30 U/L (6-35); Albumin Level 3.9 g/dL (3.5-5.1); Alkaline Phosphatase 59 U/L (38-126); Anion Gap 9 mmol/L (8-16); Aspartate Amino Transferase 24 U/L (14-36); Bilirubin,Total 0.5 mg/dL (0.2-1.3); Calcium 9.3 mg/dL (8.4-10.2); Carbon Dioxide 25 mmol/L (22-30); Chloride 105 mmol/L (98-107); Estimated CRCL calculation 111 ml/min; Estimated Glomerular Filt Rate > 60; Glucose 100 mg/dL (65-110); Magnesium 1.9 mg/dL (1.6-2.3); Potassium 3.1 mmol/L (3.4-5.0); Sodium 139 mmol/L (137-145)
--- NOTE | 2023-02-20 07:20 | WPDHPUPDATE1 ---
History and Physical Update Update Date/Time: 02/20/23 07:20 History and Physical has been reviewed, including an updated exam of the patient. There are NO changes in the patient's condition. Risks, benefits, and alternatives have been discussed and questions answered. Patient agrees to proceed with procedure.
[2023-02-20 07:34] LABS: Blood Urea Nitrogen < 2 mg/dL (7-17)
[2023-02-20] MEDS: PANTOPRAZOLE SODIUM IV 40 MG VIAL IV PUSH ×2 (08:38→20:02)
[2023-02-20] MEDS: POTASSIUM CHLORIDE INJ 40 MEQ in SODIUM CHLORIDE 0.9% IV 500 ML 130 MEQ IVPB (08:41)
--- NOTE | 2023-02-20 12:05 | PC.NURSE ---
Verbal report given to Christin RN preop nurse. Patient transferred to OR via wheelchair.
--- NOTE | 2023-02-20 12:52 | WPDGIPROGNO ---
Progress Note: A&P Assessment and Plan (1) Gallstones: Code(s): K80.20 - Calculus of gallbladder without cholecystitis without obstruction Status: Acute Assessment and Plan: Patient with gallstones on imaging studies. Elevated transaminases have now returned to normal. Surgery is seen patient agree that she may have symptomatic cholelithiasis. I understand cholecystectomy to be performed today. (2) Transaminitis: Code(s): R74.01 - Elevation of levels of liver transaminase levels Status: Acute Assessment and Plan: LFTs have returned to normal. (3) Abdominal pain: Code(s): R10.9 - Unspecified abdominal pain Status: Acute Subjective Date/time seen: 02/20/23 12:52 Interval history: Patient patient feeling better today. Has been seen by surgery we felt to have symptomatic cholelithiasis. Cholecystectomy anticipated. Review of Systems Review of Systems: Review of systems noncontributory. Exam Narrative: Physical exam reveals patient be alert comfortable at rest this morning. HEENT exam reveals no icterus. Lungs are clear. Heart without murmur. Abdomen bowel sounds present soft nontender with no organomegaly. Objective Data Vital Signs Vital Signs: Vital Signs - 24 hr 02/19/23 14:00 02/19/23 20:24 02/19/23 20:00 Temperature 97.8 F 97.4 F L Pulse Rate 65 80 Respiratory Rate 17 17 Blood Pressure 144/95 H 135/72 Pulse Oximetry 99 100 Oxygen Delivery Room Air 02/20/23 05:09 02/20/23 07:51 Temperature 98.8 F Pulse Rate 63 Respiratory Rate 17 18 Blood Pressure 120/73 Pulse Oximetry 100 100 Oxygen Delivery Room Air Intake/Output Intake/Output: Intake & Output 02/17/23 02/18/23 02/19/23 02/20/23 23:59 23:59 23:59 23:59 Intake Total 2120 4400 1000 Balance 2120 4400 1000 Meds/Results Medications: Active Medications Generic Name Dose Route Start Last Admin Trade Name Freq PRN Reason Stop Dose Admin Acetaminophen 650 mg 02/18/23 16:50 02/18/23 17:32 Acetaminophen 325 Mg Tablet PO 650 mg Q6H PRN Administration Mild Pain (1-3) or Fever Dicyclomine HCl 20 mg 02/18/23 09:00 02/20/23 08:38 Dicyclomine Hcl 10 Mg Capsule PO Not Given BID LYSSA Dextrose/Sodium Chloride 1,000 mls @ 100 mls/hr 02/18/23 05:25 02/20/23 08:37 Dextrose 5% Sodium Chloride 0.45% IV CONT Infused .Q10H LYSSA Infusion Pantoprazole Sodium 40 mg 02/18/23 09:00 02/20/23 08:38 Pantoprazole Sodium Iv 40 Mg Vial IV PUSH 40 mg Q12HR LYSSA Administration Radiology Results: ITS Impressions Upper GI and Small Bowel X-Ray 02/18/23 12:05 IMPRESSION: 1. Normal upper gastrointestinal series. 2. Normal small bowel series. Abdomen Ultrasound 02/18/23 12:27 IMPRESSION: 1. Cholelithiasis. No evidence of acute cholecystitis. Labs Labs: Laboratory Results - last 24 hr 02/20/23 05:11 WBC 8.0 RBC 4.78 Hgb 13.9 Hct 41.7 MCV 87.2 MCH 29.1 MCHC 33.3 RDW 12.5 Plt Count 350 MPV 10.0 Immature Gran % (Auto) 0.1 Neut % (Auto) 53.0 Lymph % (Auto) 35.1 [place] % (Auto) 7.9 Eos % (Auto) 3.0 Baso % (Auto) 0.9 Lymph # (Auto) 2.81 [place] # (Auto) 0.6 Eos # (Auto) 0.2 Baso # (Auto) 0.1 Abs Immat Gran (auto) 0.01 Absolute Neuts (auto) 4.2 Absolute Nucleated RBC 0.0 Nucleated RBC % 0.0 Sodium 139 Potassium 3.1 L Chloride 105 Carbon Dioxide 25 Anion Gap 9 BUN < 2 L Creatinine 0.70 Estim Creat Clear Calc 111 Estimated GFR > 60 Glucose 100 Calcium 9.3 Magnesium 1.9 Total Bilirubin 0.5 AST 24 ALT 30 Alkaline Phosphatase 59 Total Protein 7.0 Albumin 3.9 Amg Follow-up Billing Hospital Follow-up Hospital Follow-up: [id number] Subs Hosp Care Mod
--- NOTE | 2023-02-20 12:57 | WPDANESEPPF ---
Anes - Initial Pre Proc Eval Procedure: Operation Date: 02/20/23 13:30 Proposed Procedures p Laparoscopic Cholecystectomy - Kavita Howard MD Date/Time: 02/20/23 12:57 Surgeon: Lee Pre Op Diagnosis: Starvation ketoacidosis Patient Data Age: 22 Gender: F Height: 1.57 m Weight: 86.8 kg Last Vital Signs Temp 37.1 C 02/20/23 05:09 Pulse 63 02/20/23 05:09 Resp 18 02/20/23 07:51 BP 120/73 02/20/23 05:09 Pulse Ox 100 02/20/23 07:51 O2 Del Method Room Air 02/20/23 07:51 Allergies Allergy/AdvReac Type Severity Reaction Status Date / Time No Known Allergies Allergy Verified 02/20/23 12:37 Home Medications Medication Instructions Recorded Confirmed Type naproxen 500 mg tablet 500 mg PO BID PRN pain #20 tabs 02/09/23 02/18/23 Rx ondansetron 4 mg disintegrating 4 mg PO Q8H #20 tabs 02/09/23 02/18/23 Rx tablet dicyclomine 20 mg tablet 20 mg PO BID 02/18/23 02/18/23 History famotidine 20 mg tablet 20 mg PO BID 02/18/23 02/18/23 History Laboratory Tests 02/20/23 05:11 WBC 8.0 K/mm3 (4.5-10.0) RBC 4.78 M/mm3 (4.2-5.4) Hgb 13.9 g/dL (12.0-15.0) Hct 41.7 % (37.0-47.0) MCV 87.2 fl (80-100) MCH 29.1 pg (26-34) MCHC 33.3 g/dl (32-36) RDW 12.5 % (11.5-14.5) Plt Count 350 k/mm3 (150-375) MPV 10.0 fl (7.4-10.4) Immature Gran % (Auto) 0.1 % (0-0.5) Neut % (Auto) 53.0 % (45.5-73.1) Lymph % (Auto) 35.1 % (18.3-44.2) [place] % (Auto) 7.9 % (2.6-8.5) Eos % (Auto) 3.0 % (0-4.4) Baso % (Auto) 0.9 % (0.2-1.2) Lymph # (Auto) 2.81 K/mm3 (0.9-3.2) [place] # (Auto) 0.6 K/mm3 (0.1-0.6) Eos # (Auto) 0.2 K/mm3 (0-0.3) Baso # (Auto) 0.1 K/mm3 (0.0-0.1) Abs Immat Gran (auto) 0.01 K/mm3 (0.00-0.031) Absolute Neuts (auto) 4.2 K/mm3 (1.3-6.7) Absolute Nucleated RBC 0.0 K/mm3 (0.0-0.012) Nucleated RBC % 0.0 % (0.0-0.2) Sodium 139 mmol/L (137-145) Potassium 3.1 L mmol/L (3.4-5.0) Chloride 105 mmol/L (98-107) Carbon Dioxide 25 mmol/L (22-30) Anion Gap 9 mmol/L (8-16) BUN < 2 L mg/dL (7-17) Creatinine 0.70 mg/dL (0.7-1.0) Estim Creat Clear Calc 111 ml/min Estimated GFR > 60 (59 - ) Glucose 100 mg/dL (65-110) Calcium 9.3 mg/dL (8.4-10.2) Magnesium 1.9 mg/dL (1.6-2.3) Total Bilirubin 0.5 mg/dL (0.2-1.3) AST 24 U/L (14-36) ALT 30 U/L (6-35) Alkaline Phosphatase 59 U/L (38-126) Total Protein 7.0 g/dL (6.3-8.2) Albumin 3.9 g/dL (3.5-5.1) Patient hx anesthesia problems: none Family hx anesthesia problems: none Results Review: All pre-operative results and documents have been reviewed as part of the pre-operative evaluation. [facility] Past Medical History Medical History Anxiety Eczema Family History Family History Other Unknown family medical history Social History Social History Smoking status: Never smoker Alcohol intake: current Drinks per week: 3 Substance use: never Lack of Transportation: No Lack of Food: Never True Current Housing: I Have Housing Concerned About Future Housing: No Difficulty Paying Gas/Electric Bills: No Difficulty Paying for Meds: No Currently Unemployed: No Education: High School Diploma/GED Difficulty w/ Childcare or Family Care: No Spiritual care concerns: No Anes - Eval Final PreProcedure Day of Procedure 02/20/23 12:57 Patient weight: obese Heart: regular rate and rhythm Lungs: clear to auscultation Airway: Mallampati scale class II Neurological: alert and oriented Last oral intake: >/= 8 hours ASA classification: II Emergent: no Anesthetic plan: proceed Anesthesia type and monitoring: general ETT and standard monitor
[2023-02-20] MEDS: ceFAZolin 2 GM/D5W 50 ML 2 GM/50 ML BAG IVPB (13:04)
--- NOTE | 2023-02-20 13:12 | PM.IMPN ---
Progress Note: A&P Assessment and Plan (1) Starvation ketoacidosis: Code(s): T73.0XXA - Starvation, initial encounter; E87.29 - Other acidosis Status: Acute (2) Transaminitis: Code(s): R74.01 - Elevation of levels of liver transaminase levels Status: Acute (3) Abdominal pain: Code(s): R10.9 - Unspecified abdominal pain Status: Acute (4) Nausea and vomiting: Code(s): R11.2 - Nausea with vomiting, unspecified Status: Acute Plan 22-year-old female presented with nausea vomiting poor p.o. intake abdominal pain poor appetite diarrhea. no reported bloody bowel movements. CT abdomen pelvis showed local Ileitis done on February 09. Involving terminal ileum. No GI follow-up has been done. Laboratory evaluation showed mild leukocytosis of 11,000. Heme concentration is hemoglobin of 15 thrombocytosis. Rapid COVID influenza PCR negative. Mild transaminitis. CRP is normal lipase is normal. Recurrent ED visits since earlier this month. will consult GI for further workup. History of fatty liver. Colonoscopy 3 years ago with hemorrhoids status post banding. Continue IV fluids and PPI gallbladder revealed cholelithiasis without cholecystitis. Intermittent pain persist. GI consultation reviewed. Continue PPI. Consult General surgery. Plan for cholecystectomy today Subjective Date/time seen: 02/20/23 13:12 Interval history: 22-year-old female presented with nausea vomiting poor p.o. intake poor appetite diarrhea. CT abdomen pelvis showed local eye lightest done on February 09. Involving terminal ileum. No GI follow-up has been done. Laboratory evaluation showed mild leukocytosis of 11,000. Heme concentration is hemoglobin of 15 thrombocytosis. Rapid COVID influenza PCR negative. Mild transaminitis. CRP is normal lipase is normal 02/19/2023: Is to have abdominal pain more in her right upper also having loose stool. Remains afebrile. Vomiting present this morning after her breakfast. 02/20/23: Feeling better today. No nausea vomiting. No abdominal pain. Going for surgery today Review of Systems Review of Systems: All systems reviewed & are unremarkable except as noted in HPI and below Exam Narrative: CONST: No acute distress. Well nourished. HENMT: Head is normocephalic and atraumatic. Moist mucous membranes. No posterior oropharynx erythema. EYES: No conjunctival icterus, injection, or pallor. PERRL. NECK: No meningeal signs. RESP: Able to speak in full sentences. Normal respiratory effort. CTAB. CARDIO: Regular rate. Regular rhythm. 2+ DP and radial pulses bilaterally. GI: Nondistended. Nontender, soft : No CVA tenderness to palpation. SKIN: No rashes or lesions noted on exposed skin. NEURO: Oriented x3. Moves all extremities. EXTREM/MSK/BACK: No pedal edema. PSYCH: Normal affect Objective Data Vital Signs Vital Signs: Vital Signs - 24 hr 02/19/23 14:00 02/19/23 20:24 02/19/23 20:00 Temperature 97.8 F 97.4 F L Pulse Rate 65 80 Respiratory Rate 17 17 Blood Pressure 144/95 H 135/72 Pulse Oximetry 99 100 Oxygen Delivery Room Air 02/20/23 05:09 02/20/23 07:51 Temperature 98.8 F Pulse Rate 63 Respiratory Rate 17 18 Blood Pressure 120/73 Pulse Oximetry 100 100 Oxygen Delivery Room Air Intake/Output Intake/Output: Intake & Output 02/17/23 02/18/23 02/19/23 02/20/23 23:59 23:59 23:59 23:59 Intake Total 2120 4400 1000 Balance 2120 4400 1000 Meds/Results Medications: Active Medications Generic Name Dose Route Start Last Admin Trade Name Freq PRN Reason Stop Dose Admin Acetaminophen 650 mg 02/18/23 16:50 02/18/23 17:32 Acetaminophen 325 Mg Tablet PO 650 mg Q6H PRN Administration Mild Pain (1-3) or Fever Dicyclomine HCl 20 mg 02/18/23 09:00 02/20/23 08:38 Dicyclomine Hcl 10 Mg Capsule PO Not Given BID LYSSA Dextrose/Sodium Chloride 1,000 mls @ 100 mls/hr 02/18/23 05:25
[2023-02-20] MEDS: BUPIVACAINE/EPINEPHRINE 0.5% 50 ML VIAL 30 ML INFILTRATE (13:29)
[2023-02-20] MEDS: LACTATED RINGERS 1,000 ML 30 ML IV CONT (14:00)
--- NOTE | 2023-02-20 14:02 | P.OP_ITS ---
Procedure Note - Detailed Date of Procedure 02/20/23 Pre-op Diagnosis cholecystitis, cholelithiasis Post-op Diagnosis Same Procedure Performed Laparoscopic cholecystectomy Surgeon Kavita Howard MD Anesthesia General Indications 22-year-old female presented to the hospital complaining of worsening upper abdominal pain associated with nausea and vomiting, diarrhea. Workup including imaging significant for cholecystitis, cholelithiasis. Findings moderate cholecystitis Description of Procedure The patient was taken to the operating room placed in the supine position. After adequate induction of general anesthesia, the patient was prepped and draped in normal sterile fashion. A time-out was then performed to verify the patient's identity as well as the procedure being performed. I then made a 5 mm incision in the infraumbilical region. Through this, a Veress needle was placed into the peritoneal cavity and CO2 gas was then insufflated. After adequate pneumoperitoneum was achieved, the Veress needle was removed and a 5 mm optiview trocar was placed through this incision under direct visualization. I then placed the laparoscope through this trocar site and under direct visualization placed a further 12 mm subxiphoid port as well as 2 additional 5 mm ports in the right upper abdomen. The gallbladder was then identified and was noted to be moderately inflamed and distended. I was able to place a grasper at the dome of the gallbladder and this was retracted anterior and cephalad up over the liver. A 2nd retractor was then placed at the infundibulum and retracted laterally, this allowed visualization of the triangle of Calot. I then was able to visualize the cystic duct in its entirety from its proximal insertion into the gallbladder, to its distal junction with the common hepatic/common bile duct junction. At this point, I carefully skeletonized the proximal cystic duct with the [place] dissector. I then clipped and transected the proximal cystic duct. Next I visualized the cystic artery. Again the artery was skeletonized, clipped, and transected. I then used the Bovie cautery to take down the peritoneal attachments of the gallbladder off the liver bed. Once the ga llbladder specimen was completely detached, an endo-pouch was placed through the 12 mm port site. I then placed the gallbladder specimen into the Endo pouch and removed the endo-pouch from the 12 mm port site. The specimen will now be sent to pathology for further review. I then copiously irrigated the right upper quadrant. Some mild oozing was noted in the liver bed and this was controlled with the bovie cautery. Hemostasis was noted in the liver bed, the clips were noted to be in good position on both the cystic duct stump and the cystic artery stump. No other pathology was noted in the right upper quadrant. I then moved the laparoscope to the subxiphoid port. No iatrogenic injury or other pathology was noted in the lower abdomen. I then closed the 12 mm trocar site under direct visualization using the Poncho cone and 0 Vicryl suture. At this point, the abdomen was desufflated and all ports removed. All port sites were then closed with 4.O Monocryl subcuticular sutures. Dermabond was placed on each incision. The patient tolerated the procedure well, was extubated in the operating room postoperative and will be transferred to the recovery room in stable condition Estimated Blood Loss 10 Drains No Packing No Pathology Yes Complications No immediate complications Condition Stable Disposition PACU [facility] Billing Surgery - Charge Forward: Surgery Billing
[2023-02-20] MEDS: fentaNYL CITRATE INJ (*CRX) 100 MCG/2 ML VIAL 25 MCG IV PUSH ×8 (14:23→15:03)
--- NOTE | 2023-02-20 15:15 | PC.NURSE ---
Returned from OR via stretcher. Family at bedside.
[2023-02-20] MEDS: HYDROcodone/acetaminophen (*CRX) 5-325 MG TABLET 1 TAB PO ×2 (16:14→20:04)
[2023-02-20] MEDS: ONDANSETRON HCL ODT 4 MG TABLET PO ×2 (16:15→21:54)
[2023-02-20] MEDS: DICYCLOMINE HCL 10 MG CAPSULE 20 MG PO (16:15)
[2023-02-20] MEDS: DEXTROSE 5%/0.45% SOD CHL 1,000 ML 100 ML IV CONT (16:15)
[2023-02-20] MEDS: FAMOTIDINE 20 MG TABLET PO (17:58)
[2023-02-21] MEDS: HYDROcodone/acetaminophen (*CRX) 5-325 MG TABLET 1 TAB PO ×4 (00:15→14:42)
[2023-02-21] MEDS: DEXTROSE 5%/0.45% SOD CHL 1,000 ML 100 ML IV CONT (00:16)
[2023-02-21] MEDS: ONDANSETRON HCL ODT 4 MG TABLET PO ×2 (05:27→13:44)
[2023-02-21 06:00] VITALS: BP 108/74; PULSE 70; RESP 14; TEMP 36.7; O2SAT 100
[2023-02-21 06:17] LABS: Basophils Absolute Auto 0.1 K/mm3 (0.0-0.1); Basophils Percent Auto 0.4 % (0.2-1.2); Eosinophils Percent Auto 0.1 % (0-4.4); Hematocrit 43.2 % (37.0-47.0); Immature Granulocyte Absolute 0.05 K/mm3 (0.00-0.031); Immature Granulocyte Percent A 0.4 % (0-0.5); Lymphocytes Absolute Auto 2.09 K/mm3 (0.9-3.2); Mean Corpuscular HGB Conc 32.4 g/dl (32-36); Mean Corpuscular Hemoglobin 28.7 pg (26-34); Mean Corpuscular Volume 88.7 fl (80-100); Mean Platelet Volume 10.3 fl (7.4-10.4); Monocytes Percent Auto 7.1 % (2.6-8.5); Neutrophils Absolute Auto 10.7 K/mm3 (1.3-6.7); Platelet Count Result 349 k/mm3 (150-375); Red Blood Count 4.87 M/mm3 (4.2-5.4); Red Cell Distribution Width 12.6 % (11.5-14.5); White Blood Count 13.9 K/mm3 (4.5-10.0)
[2023-02-21 06:30] LABS: Alanine Aminotransferase 43 U/L (6-35); Albumin Level 4.2 g/dL (3.5-5.1); Alkaline Phosphatase 64 U/L (38-126); Anion Gap 10 mmol/L (8-16); Aspartate Amino Transferase 42 U/L (14-36); Bilirubin,Total 0.5 mg/dL (0.2-1.3); Calcium 9.8 mg/dL (8.4-10.2); Carbon Dioxide 26 mmol/L (22-30); Chloride 104 mmol/L (98-107); Estimated CRCL calculation 98 ml/min; Estimated Glomerular Filt Rate > 60; Glucose 112 mg/dL (65-110); Magnesium 1.8 mg/dL (1.6-2.3); Potassium 3.5 mmol/L (3.4-5.0); Sodium 140 mmol/L (137-145)
[2023-02-21 06:35] LABS: Blood Urea Nitrogen < 2 mg/dL (7-17)
[2023-02-21] MEDS: FAMOTIDINE 20 MG TABLET PO (08:40)
[2023-02-21] MEDS: DICYCLOMINE HCL 10 MG CAPSULE 20 MG PO (08:40)
[2023-02-21] MEDS: NAPROXEN 500 MG TABLET PO (08:40)
[2023-02-21] MEDS: PANTOPRAZOLE SODIUM IV 40 MG VIAL IV PUSH (08:41)
--- NOTE | 2023-02-21 09:33 | PM.PNGS ---
Progress Note: A&P Assessment and Plan (1) Cholecystitis: Code(s): K81.9 - Cholecystitis, unspecified Status: Acute Assessment and Plan: cont routine postop care, ADAT, home c po analgesia Subjective Subjective Date/Time Seen: 02/21/23 09:33 Interval history: doing well, some incisional soreness, preop N/V, pain resolved Review of Systems Review of Systems: All systems reviewed & are unremarkable except as noted in HPI and below Exam Const: General: cooperative, comfortable and no acute distress Resp: Auscultation: clear to auscultation bilaterally Cardio: Rate: regular rate Rhythm: regular rhythm GI: Inspection: normal to inspection and incision GI Palp: Yes abdominal tenderness, Yes Soft to palpation and Yes Tenderness to palpation present (GI) Objective Data Vital Signs Vital Signs: Vital Signs - 24 hr 02/20/23 14:00 02/20/23 14:15 02/20/23 14:30 Temperature 37.2 C Pulse Rate 94 74 74 Respiratory Rate 16 14 16 Blood Pressure 137/82 147/95 H 155/90 H Pulse Oximetry 100 100 99 Oxygen Delivery Simple Face Mask Simple Face Mask Room Air Oxygen Flow Rate 8 8 02/20/23 14:45 02/20/23 15:00 02/20/23 15:20 Temperature 37.0 C Pulse Rate 82 76 72 Respiratory Rate 16 14 17 Blood Pressure 159/93 H 149/84 H 157/93 H Pulse Oximetry 99 96 98 Oxygen Delivery Room Air Room Air Oxygen Flow Rate 02/20/23 15:35 02/20/23 16:05 02/20/23 15:15 Temperature 37.0 C 37.0 C Pulse Rate 71 72 Respiratory Rate 17 17 16 Blood Pressure 143/82 H 144/84 H Pulse Oximetry 99 97 97 Oxygen Delivery Room Air Oxygen Flow Rate 02/20/23 17:05 02/20/23 20:00 02/20/23 22:00 Temperature 37.0 C 36.6 C Pulse Rate 79 73 Respiratory Rate 17 14 Blood Pressure 138/85 105/72 Pulse Oximetry 100 99 Oxygen Delivery Room Air Oxygen Flow Rate 02/21/23 06:00 Temperature 36.7 C Pulse Rate 70 Respiratory Rate 14 Blood Pressure 108/74 Pulse Oximetry 100 Oxygen Delivery Oxygen Flow Rate Intake/Output Intake/Output: Intake & Output 02/18/23 02/19/23 02/20/2302/21/23 23:59 23:59 23:59 23:59 Intake Total 2120 4400 2080 1400 Balance 2120 4400 2080 1400 Meds/Results Medications: Active Medications Generic Name Dose Route Start Last Admin Trade Name Freq PRN Reason Stop Dose Admin Acetaminophen 650 mg 02/18/23 16:50 02/18/23 17:32 Acetaminophen 325 Mg Tablet PO 650 mg Q6H PRN Administration Mild Pain (1-3) or Fever Hydrocodone Bitart/Acetaminophen 1 tab 02/20/23 15:07 02/21/23 06:18 Hydrocodone/Acetaminophen (*Crx) 5-325 Mg Tablet PO 1 tab Q4H PRN Administration Pain Rated 4-6 Dicyclomine HCl 20 mg 02/18/23 09:00 02/21/23 08:40 Dicyclomine Hcl 10 Mg Capsule PO 20 mg BID LYSSA Administration Famotidine 20 mg 02/20/23 17:00 02/21/23 08:40 Famotidine 20 Mg Tablet PO 20 mg BID LYSSA Administration Dextrose/Sodium Chloride 1,000 mls @ 100 mls/hr 02/18/23 05:25 02/21/23 00:16 Dextrose 5% Sodium Chloride 0.45% IV CONT 100 mls/hr .Q10H LYSSA Administration Naproxen 500 mg 02/21/23 08:00 02/21/23 08:40 Naproxen 500 Mg Tablet PO 500 mg BIDWM LYSSA Administration Ondansetron HCl 4 mg 02/20/23 15:07 02/21/23 05:27 Ondansetron Hcl Odt 4 Mg Tablet PO 4 mg Q8HR LYSSA Administration Pantoprazole Sodium 40 mg 02/18/23 09:00 02/21/23 08:41 Pantoprazole Sodium Iv 40 Mg Vial IV PUSH 40 mg Q12HR LYSSA Administration Radiology Results: ITS Impressions Upper GI and Small Bowel X-Ray 02/18/23 12:05 IMPRESSION: 1. Normal upper gastrointestinal series. 2. Normal small bowel series. Abdomen Ultrasound 02/18/23 12:27 IMPRESSION: 1. Cholelithiasis. No evidence of acute cholecystitis. Labs Labs: Laboratory Results - last 24 hr 02/21/23 05:31 WBC 13.9 H RBC 4.87 Hgb 14.0 Hct 43.2 MCV 88.7 MCH 28.7 MCHC 32.4 RDW 12.6 Plt Count 349 MPV 10.3 Im
--- NOTE | 2023-02-21 12:03 | PM.IMPN ---
Progress Note: A&P Assessment and Plan (1) Starvation ketoacidosis: Code(s): T73.0XXA - Starvation, initial encounter; E87.29 - Other acidosis Status: Acute (2) Transaminitis: Code(s): R74.01 - Elevation of levels of liver transaminase levels Status: Acute Assessment and Plan: History of fatty liver AST/ALT elevated today 02/21, will continue to monitor (3) Abdominal pain: Code(s): R10.9 - Unspecified abdominal pain Status: Acute Assessment and Plan: CT abdomen pelvis showed local Ileitis done on February 09 involving terminal ileum. Abdomen Ultrasound showed Cholelithiasis. No evidence of acute cholecystitis CRP is normal, lipase is normal Gen surg and GI following Lap cholecystectomy done yesterday, no complications pain control, advance diet as tolerated PPI as needed calprotectin ordered, pending (4) Nausea and vomiting: Code(s): R11.2 - Nausea with vomiting, unspecified Status: Acute Assessment and Plan: CT abdomen pelvis showed local Ileitis done on February 09 involving terminal ileum. Abdomen Ultrasound showed Cholelithiasis. No evidence of acute cholecystitis CRP is normal, lipase is normal Gen surg and GI following Lap cholecystectomy done yesterday, no complications pain control, advance diet as tolerated PPI as needed calprotectin ordered, pending Plan Subjective Date/time seen: 02/21/23 12:03 Interval history: Patient is a 22-year-old female s/p lap kimi performed yesterday by Dr. Howard. Patient is sitting up in bed and tolerating liquids without N/V or worsening of her abdominal pain. Patient was experiencing some pain this morning, but is receiving pain medications for control. Will advance her diet as tolerated. She does report passing gas since surgery. Will see how she does with advancing diet and pain control today and plan for d/c when cleared by surgery. Review of Systems Review of Systems: All systems reviewed & are unremarkable except as noted in HPI and below Exam Narrative: CONST: No acute distress. Well nourished. HENMT: Head is normocephalic and atraumatic. Moist mucous membranes. No posterior oropharynx erythema. EYES: EOM intact. PERRL. NECK: No meningeal signs. RESP: Lungs clear to auscultation. Normal respiratory effort. CARDIO: RRR. Pulses palpable bilaterally. GI: Nondistended. Nontender, soft, BS present and active : No CVA tenderness to palpation. SKIN: 4 abdominal incisions clean, dry and intact. Open to air. NEURO: Oriented x3. Moves all extremities. EXTREM/MSK/BACK: No pedal edema. PSYCH: Normal mood and affect. Objective Data Vital Signs Vital Signs: Vital Signs - 24 hr 02/20/23 14:00 02/20/23 14:15 02/20/23 14:30 Temperature 98.9 F Pulse Rate 94 74 74 Respiratory Rate 16 14 16 Blood Pressure 137/82 147/95 H 155/90 H Pulse Oximetry 100 100 99 Oxygen Delivery Simple Face Mask Simple Face Mask Room Air Oxygen Flow Rate 8 8 02/20/23 14:45 02/20/23 15:00 02/20/23 15:20 Temperature 98.6 F Pulse Rate 82 76 72 Respiratory Rate 16 14 17 Blood Pressure 159/93 H 149/84 H 157/93 H Pulse Oximetry 99 96 98 Oxygen Delivery Room Air Room Air Oxygen Flow Rate 02/20/23 15:35 02/20/23 16:05 02/20/23 15:15 Temperature 98.6 F 98.6 F Pulse Rate 71 72 Respiratory Rate 17 17 16 Blood Pressure 143/82 H 144/84 H Pulse Oximetry 99 97 97 Oxygen Delivery Room Air Oxygen Flow Rate 02/20/23 17:05 02/20/23 20:00 02/20/23 22:00 Temperature 98.6 F 97.9 F Pulse Rate 79 73 Respiratory Rate 17 14 Blood Pressure 138/85 105/72 Pulse Oximetry 100 99 Oxygen Delivery Room Air Oxygen Flow Rate 02/21/23 06:00 02/21/23 08:00 Temperature 98.1 F Pulse Rate 70 Respiratory Rate 14 Blood Pressure 108/74 Pulse Oximetry 100 Oxygen Delivery Room Air Oxygen Flow Rate Intake/Output Intake/Output: Intake & Output 02/18/23
--- NOTE | 2023-02-21 14:22 | WPDANESPN ---
Anes - Prog Note Post-Op Date/Time: 02/21/23 14:22 Cardiovascular status: normal Respiratory status: normal Airway patency: baseline Mental status: baseline Post-Op hydration status: normal Vital Signs: Last Vital Signs Temp 98.1 F 02/21/23 06:00 Pulse 70 02/21/23 06:00 Resp 14 02/21/23 06:00 BP 108/74 02/21/23 06:00 Pulse Ox 100 02/21/23 06:00 O2 Del Method Room Air 02/21/23 08:00 O2 Flow Rate 8 02/20/23 14:15 Pain Score (VAS): 0/10 I/O: Intake & Output 02/20/23 02/21/23 02/21/23 23:59 07:59 15:59 Intake Total 830 1400 220 Balance 830 1400 220 Laboratory Tests 02/21/23 05:31 02/21/23 05:31 02/21/23 05:31 WBC 13.9 H RBC 4.87 Hgb 14.0 Hct 43.2 MCV 88.7 MCH 28.7 MCHC 32.4 RDW 12.6 Plt Count 349 MPV 10.3 Immature Gran % (Auto) 0.4 Neut % (Auto) 77.0 H Lymph % (Auto) 15.0 L [place] % (Auto) 7.1 Eos % (Auto) 0.1 Baso % (Auto) 0.4 Lymph # (Auto) 2.09 [place] # (Auto) 1.0 H Eos # (Auto) 0.0 Baso # (Auto) 0.1 Abs Immat Gran (auto) 0.05 H Absolute Neuts (auto) 10.7 H Absolute Nucleated RBC 0.0 Nucleated RBC % 0.0 Sodium 140 Potassium 3.5 Chloride 104 Carbon Dioxide 26 Anion Gap 10 BUN < 2 L Creatinine 0.80 Estim Creat Clear Calc 98 Estimated GFR > 60 Glucose 112 H Calcium 9.8 Magnesium 1.8 Total Bilirubin 0.5 AST 42 H ALT 43 H Alkaline Phosphatase 64 Total Protein 7.0 Albumin 4.2 Post-procedural complaints: none Patient Feedback: Patient satisfied with anesthetic care.
[2023-02-21 14:27] VITALS: BP 143/89; PULSE 99; RESP 18; TEMP 36.4; O2SAT 94
--- NOTE | 2023-02-21 15:05 | PM.DS ---
DS: Admitting Diagnosis Discharge Date 02/21/23 Admitting Diagnosis abdominal pain DS: Discharge Diagnosis Discharge Diagnosis (1) Abdominal pain: Code(s): R10.9 - Unspecified abdominal pain Status: Acute Assessment and Plan: CT abdomen pelvis showed local Ileitis done on February 09 involving terminal ileum. Abdomen Ultrasound showed Cholelithiasis. No evidence of acute cholecystitis CRP is normal, lipase is normal Lap cholecystectomy done yesterday, no complications pain control, advance diet as tolerated PPI as needed calprotectin ordered, pending (2) Nausea and vomiting: Code(s): R11.2 - Nausea with vomiting, unspecified Status: Acute Assessment and Plan: CT abdomen pelvis showed local Ileitis done on February 09 involving terminal ileum. Abdomen Ultrasound showed Cholelithiasis. No evidence of acute cholecystitis CRP is normal, lipase is normal Gen surg to follow up in 2 weeks Lap cholecystectomy done yesterday, no complications pain control, advance diet as tolerated PPI as needed calprotectin ordered, pending (3) Transaminitis: Code(s): R74.01 - Elevation of levels of liver transaminase levels Status: Acute Assessment and Plan: History of fatty liver monitor outpatient as needed DS: Summary Hospital Course Hospital Course: Patient is a 22-year-old female s/p lap cholecystectomy performed yesterday by Dr. Howard. Patient is sitting up in bed and tolerating liquids without N/V or worsening of her abdominal pain. Patient was experiencing some pain this morning, but is receiving pain medications for control. She is tolerating low fat diet and ambulation. She does report passing gas since surgery. She has gemini cleared by Dr. Howard for d/c home today and will follow up in 2 weeks. Time Spent with Patient Time attestation: Total time spent providing and/or coordinating discharge services: Exam Narrative: CONST: No acute distress. Well nourished. HENMT: Head is normocephalic and atraumatic. Moist mucous membranes. No posterior oropharynx erythema. EYES: EOM intact. PERRL. NECK: No meningeal signs. RESP: Lungs clear to auscultation. Normal respiratory effort. CARDIO: RRR. Pulses palpable bilaterally. GI: Nondistended. Nontender, soft, BS present and active : No CVA tenderness to palpation. SKIN: 4 abdominal incisions clean, dry and intact. Open to air. NEURO: Oriented x3. Moves all extremities. EXTREM/MSK/BACK: No pedal edema. PSYCH: Normal mood and affect. DS: Data Data Completed and Pending Pending studies at discharge: Pending at discharge 02/20/23 13:25 Surgical [PTH] Routine Labs on day of discharge: Labs from last 24 hours 02/21/23 05:31 WBC 13.9 H RBC 4.87 Hgb 14.0 Hct 43.2 MCV 88.7 MCH 28.7 MCHC 32.4 RDW 12.6 Plt Count 349 MPV 10.3 Immature Gran % (Auto) 0.4 Neut % (Auto) 77.0 H Lymph % (Auto) 15.0 L [place] % (Auto) 7.1 Eos % (Auto) 0.1 Baso % (Auto) 0.4 Lymph # (Auto) 2.09 [place] # (Auto) 1.0 H Eos # (Auto) 0.0 Baso # (Auto) 0.1 Abs Immat Gran (auto) 0.05 H Absolute Neuts (auto) 10.7 H Absolute Nucleated RBC 0.0 Nucleated RBC % 0.0 Sodium 140 Potassium 3.5 Chloride 104 Carbon Dioxide 26 Anion Gap 10 BUN < 2 L Creatinine 0.80 Estim Creat Clear Calc 98 Estimated GFR > 60 Glucose 112 H Calcium 9.8 Magnesium 1.8 Total Bilirubin 0.5 AST 42 H ALT 43 H Alkaline Phosphatase 64 Total Protein 7.0 Albumin 4.2 Discharge Plan Discharge Attending physician on discharge: Oscar Singh Consulting providers: Sushant Ames; Kavita Howard Discharging Clinician: Anita Henriquez Anticipated Discharge Date/Time: 02/21/23 15:02 Patient Disposition: Home, Self-Care Activity: as tolerated Diet: low fat Wound Care Instructions: incision open to air Discharge Instructions: DISCHARGE INSTRUCTION SHEET FOR HERNIA, GALLBLA
[2023-02-25 22:16] LABS: Calprotectin, Stool 22 mcg/g
== END 2023-02-21 17:00 | disposition home or self-care (01) ==
LOC: ANHED 02-18 03:20 → ANH2MED 02-18 03:51
PROVIDERS: Internal Medicine; Internal Medicine Gastroenterology; Surgery; Admitting Provider Internal Medicine; Emergency Provider Student in an Organized Health Care Education/Training Program; PCP Internal Medicine; Visit Provider Internal Medicine
PROC: 0FT44ZZ Resection of Gallbladder, Percutaneous Endoscopic Approach (ICD-10-PCS; CPT 47562; principal; 2023-02-20 13:30)
DX: K80.20 Calculus of gallbladder without cholecystitis without obstruction (principal); R74.01 Elevation of levels of liver transaminase levels; R93.89 Abnormal findings on diagnostic imaging of other specified body structures; T73.0XXA Starvation, initial encounter; E87.29 Other acidosis; D72.829 Elevated white blood cell count, unspecified; F41.9 Anxiety disorder, unspecified; E66.9 Obesity, unspecified; Z68.35 Body mass index [BMI] 35.0-35.9, adult; Z86.16 Personal history of COVID-19; F10.90 Alcohol use, unspecified, uncomplicated; Z79.1 Long term (current) use of non-steroidal anti-inflammatories (NSAID); Z79.899 Other long term (current) drug therapy
CPT/HCPCS: 47562; 36415; 74246; 74248; 76705; 80053; 80074; 81001; 81025; 82948; 83605; 83690; 83735; 83993; 85025; 86140; 87636; 88304; 96361; 96374; 96375; 99285; A9270; C9113; G0378; J0690; J1100; J1170; J1200; J2250; J2405; J2704; J2765; J3010; J3480; J7030; J7040; J7042; J7120

== ENCOUNTER 2023-03-21 16:20 | Emergency (ER) | payer BC, SELFPAY ==
[2023-03-21 16:47] VITALS: BP 123/85; PULSE 120; RESP 16; TEMP 37.4; O2SAT 99
--- NOTE | 2023-03-21 16:59 | ED.URI ---
HPI - URI/Sore Throat General Chief Complaint: Upper Respiratory Infection Stated Complaint: UTI & FEVER/CHILLS/RUNNY NOSE/ST/COVID EXPOSURE Time Seen by Provider: 03/21/23 16:59 Source: patient Mode of arrival: ambulatory Limitations: no limitations History of Present Illness HPI Narrative: 22-year-old female presents with complaint of lower abdominal pain, bladder pressure, urinary frequency, dysuria for 4 days. Reports she is pain approximately 20 5 times a day. States when she has to urinate she has to run to the bathroom her eye she will urinate on herself. States a few days ago she had white stuff in her urine. No blood. Patient also reports sore throat, nasal congestion, cough fatigue and low-grade fever starting yesterday. No chest pain or shortness of breath. Patient reports that she had her gallbladder removed approximately a month a half ago. States she has not felt well for the last 2 months. Has lost approximately 30 lb in the last month and have, states she is constantly thirsty, is drinking water all day long, decreased appetite. Has seen her primary care physician regarding symptoms. Has outpatient labs ordered also has CT schedules for March 27. All systems reviewed and negative except as noted above. Related Data Allergies Allergy/AdvReac Type Severity Reaction Status Date / Time No Known Allergies Allergy Verified 03/21/23 16:41 Review of Systems Review of Systems: CONSTITUTIONAL: Reports fever, chills,, fatigue sweats. Reports weight. EYES: Denies visual changes, redness, or discharge. ENT: Reports rhinorrhea, congestion, sore throat. Denies otalgia. CARDIOVASCULAR: Denies chest pain, palpitations, or edema. RESPIRATORY: Denies cough or dyspnea. GASTROINTESTINAL: Denies abdominal pain, nausea, vomiting, or diarrhea. GENITOURINARY: Reports bladder pain, dysuria urinary frequency, urgency. Denies hematuria. SKIN: Denies rash or itching. MUSCULOSKELETAL: Denies back pain, joint pain, or myalgia. NEUROLOGIC: Denies headache, numbness, or weakness. PSYCHIATRIC: Denies anxiety or depression. All other systems reviewed are negative, except as documented in HPI. [facility] Past Medical History Medical History (Updated 03/21/23 @ 17:36 by Kim Damon NP) Anxiety Eczema Surgical History Surgical History (Updated 03/06/23 @ 14:52 by Fiorella Urias MA) Hx laparoscopic cholecystectomy 02/20/23 PDC Family History Family History Other Unknown family medical history Social History Social History Smoking status: Never smoker Alcohol intake: current Drinks per week: 3 Substance use: never Lack of Transportation: No Lack of Food: Never True Current Housing: I Have Housing Concerned About Future Housing: No Difficulty Paying Gas/Electric Bills: No Difficulty Paying for Meds: No Currently Unemployed: No Education: High School Diploma/GED Difficulty w/ Childcare or Family Care: No Spiritual care concerns: No Comments At time of signature, agree with nursing past medical, surgical, social and family history. There is no relevant family history pertinent to the presenting complaint. Exam Narrative: GENERAL: This is a well-nourished, well-developed patient, in no apparent distress. HEAD: normocephalic, atraumatic. EYES: PERRL. Sclera clear/white. Vision is grossly intact. EARS: External ears normal, auditory canals clear and without drainage, TMs normal without perforation. Hearing grossly intact. NOSE: External nose normal with nasal drainage, mild nasal congestion. THROAT: Mucous membranes moist, posterior pharynx clear. NECK: Neck supple, non-tender without lymphadenopathy, masses or thyromegaly. CARDIOVASCULAR: Regular rate and rhythm without murmurs, gallops, or rubs. RESPIRATORY: Clear to auscultation. Breath sounds equal bilaterally. N
[2023-03-21 17:16] LABS: Glucose Point of Care 95 mg/dl (65-105)
== END 2023-03-21 17:39 | disposition left against medical advice (07) ==
PROVIDERS: Emergency Provider Nurse Practitioner Family; PCP Internal Medicine
DX: E86.0 Dehydration (principal); R35.0 Frequency of micturition; J06.9 Acute upper respiratory infection, unspecified; Z20.822 Contact with and (suspected) exposure to COVID-19
CPT/HCPCS: 81003; 82948; 87086; 87088; 87426; 87804; 99213; C9803; G0463

== ENCOUNTER 2023-10-08 14:45 | Outpatient (CLI) | payer BC, SELFPAY ==
--- NOTE | ~2023-10-08 | US_ITS ---
EXAMINATION: US pelvic complete DATE: 10/08/2023 INDICATION: Pelvic pain. TECHNIQUE: Multiple transabdominal sonographic images of the pelvis were obtained. COMPARISON: CT abdomen and pelvis 02/09/2023 FINDINGS: The uterus measures 7.7 x 3.7 x 4.7 cm. There is no free fluid in the pelvis. The endometrial complex measures 3 mm in thickness. The right ovary measures 2.6 x 1.6 x 2.5 cm. The left ovary measures 2.6 x 1.6 x 2.8 cm. There is normal vascular flow in the ovaries. IMPRESSION: 1. Normal pelvis. Reviewed, dictated and finalized at location E. IMPRESSION: 1. Normal pelvis.
== END 2023-10-08 14:46 ==
LOC: MICIMG 14:46
PROVIDERS: PCP Nurse Practitioner Women's Health; Visit Provider Nurse Practitioner Women's Health
DX: R10.2 Pelvic and perineal pain (principal)
CPT/HCPCS: 76856

== ENCOUNTER 2024-05-03 11:36 | Emergency (ER) | payer OTHER, SELFPAY ==
--- NOTE | 2024-05-03 12:15 | ED_ITS ---
HPI - URI/Sore Throat General Chief Complaint: Upper Respiratory Infection Stated Complaint: Cough/Headache Source: patient and RN notes reviewed Mode of arrival: ambulatory Limitations: no limitations History of Present Illness HPI Narrative: 23-year-old female presented for complaint of cough, body aches, sinus pressure/congestion, fever/chills. Temp 101.5 this morning. Denies sob, wheezing, n/v/d. Taking Dayquil and Theraflu. MD elicited complaint: cough Related Data Home Medications ?Medication ?Instructions ?Recorded ?Confirmed ?Last Taken ?Type lisdexamfetamine 10 mg capsule mg 05/03/24 Unknown History Allergies Allergy/AdvReac Type Severity Reaction Status Date / Time No Known Allergies Allergy Verified 05/03/24 11:42 Review of Systems Review of Systems: CONSTITUTIONAL: Endorses malaise, body aches, chills, sweats, fever EYES: Denies visual changes, redness, or discharge ENT: Reports rhinorrhea, congestion, sore throat CARDIOVASCULAR: Denies chest pain, palpitations, edema RESPIRATORY: Reports cough, post nasal drainage. Denies dyspnea GASTROINTESTINAL: Denies abdominal pain, nausea, vomiting, diarrhea PMFSH Past Medical History Medical History Eczema Anxiety Surgical History Surgical History Hx laparoscopic cholecystectomy 02/20/23 PDC Family History Family History Other Unknown family medical history Social History Social History Smoking status: Never smoker Alcohol intake: current Drinks per week: 3 Substance use: never Lack of Transportation: No Lack of Food: Never True Current Housing: I Have Housing Concerned About Future Housing: No Difficulty Paying Gas/Electric Bills: No Difficulty Paying for Meds: No Currently Unemployed: No Education: High School Diploma/GED Difficulty w/ Childcare or Family Care: No Spiritual care concerns: No Exam Narrative: GENERAL: mildly Ill-appearing, nontoxic no acute distress. EYES: PERRLA, conjunctivae clear ENT: Mucous membranes moist. TM pearly wright with dull light reflex bilaterally; no tragal tenderness. Oropharynx not erythematous without lesions or exudate, no drooling, no hoarseness, no trismus, uvula midline. No tripod positioning, muffled voice, soft palate or pharyngeal wall bulging NECK: Supple. No lymphadenopathy CHEST: Clear to auscultation, breath sounds equal. No wheezing, rhonchi, rales, or stridor. No respiratory distress, speaks in full sentences. HEART: Regular rate and rhythm. No murmur heard. SKIN: Warm, dry, no rash. NEURO: Alert and oriented x3. PSYCH: Normal mood and affect Course Course Emergency Course: Patient is aware of diagnosis, understands and agrees to treatment plan. Anticipatory guidance given. Patient agrees to follow-up as directed and is aware of reasons to seek care at the emergency department. Portions of this record may have been created with voice recognition software Level of Care: Express Care Visit Vital Signs Vital signs: reviewed MDM - URI/Sore Throat MDM Narrative Medical decision making narrative: POS flu. Discussed physical exam findings. Advised supportive measures and signs/symptoms to go to the ER. Pt is appropriate for outpt treatment and f/u. Differential Diagnosis Differential diagnosis: Likely upper respiratory infection, sinusitis, viral infection and influenza Discharge Plan Discharge Clinical Impression: Influenza Patient Disposition: Home, Self-Care Condition: Stable Instructions: Influenza (ED) Additional Instructions: Influenza positive You should avoid crowds until you are fever free for 24 hours without the use of fever reducing medications, or the symptoms are improved Rest. Drink plenty of fluids. Tylenol 1000mg every 8 hours as needed for pain/fever Recommend Flonase spray and Zyrtec (or Claritin/Naomy) for sinus pressure/congestion over the counter Cough syrup may cause drowsiness; avoid driving or take it at night time. Follow up with your primary care provider as needed Go to the ER for worsening symptoms or concerns Patient Language: Albanian Prescriptions: No Action lisdexamfetamine 10 mg capsule Follow-up/Referrals: Jose Angel,Racheal Amato PA-C [Primary Care Provider] - Time of Disposition: 12:26
[2024-05-03 12:40] LABS: EDCOVIDSCREEN Negative (Negative); EDINFLUASCREEN Positive (Negative); EDINFLUBSCREEN Negative (Negative)
== END 2024-05-03 12:37 | disposition home or self-care (01) ==
PROVIDERS: Emergency Provider Nurse Practitioner Family; PCP Physician Assistant
DX: J10.1 Influenza due to other identified influenza virus with other respiratory manifestations (principal); Z20.822 Contact with and (suspected) exposure to COVID-19
CPT/HCPCS: 87426; 87804; 99212; G0463